=== PATIENT | female | born 1995 | race African-American/Black ===

== ENCOUNTER 2016-10-01 03:58 | Emergency (ER) | payer MEDICAID, OTHER ==
[~2016-10-01] VITALS: Ht 170.2 cm; Wt 77.0 kg
[~2016-10-01 03:58] MED LIST: MACR100C PO
[2016-10-01 04:05] VITALS: BP 114/53; PULSE 80; RESP 14; TEMP 98.2; O2SAT 97
--- NOTE | 2016-10-01 04:18 | PD ---
HPI Chief Complaint: Syncope/Near-Syncope Time Seen by Provider: 04:11 Travel History International Travel<30 days: No Contact w/Intl Traveler<30days: No Traveled to known affect area: No History of Present Illness HPI To 21 year-old woman who had 2 episodes of feeling faint and lightheaded while at work. Should some nausea with the infiltrated throat. No history of previous similar problems. She feels well now. She had been standing when this happened but it was not otherwise particularly hot. No recent dehydration. No recent illnesses or injuries. She states she does get heavy menstrual cycles, her last initial period was September 06. She does not believe she is . No other complaints. History Past Medical History Medical History: Denies Significant Hx LMP: 09/06/16 Menopausal: No : 2 Para: 2 Social History Alcohol Use: No Tobacco Use: No Allergies-Medications (Allergen,Severity, Reaction): Coded Allergies: No Known Allergies (Verified , 10/01/16) Reported Meds & Prescriptions Reported Meds & Active Scripts Active Review of Systems Except as stated in HPI: all other systems reviewed are Neg Physical Exam Narrative GENERAL: Well-appearing 21 year-old woman, no acute distress. SKIN: Warm and dry. HEAD: Atraumatic. Normocephalic. EYES: Pupils equal and round. No scleral icterus. No injection or drainage. ENT: No nasal bleeding or discharge. Mucous membranes pink and moist. NECK: Trachea midline. No JVD. CARDIOVASCULAR: Regular rate and rhythm. No murmur appreciated. RESPIRATORY: No accessory muscle use. Clear to auscultation. Breath sounds equal bilaterally. GASTROINTESTINAL: Abdomen soft, non-tender, nondistended. Hepatic and splenic margins not palpable. MUSCULOSKELETAL: No obvious deformities. No clubbing. No cyanosis. No edema. NEUROLOGICAL: Awake and alert. No obvious cranial nerve deficits. Motor grossly within normal limits. Normal speech. PSYCHIATRIC: Appropriate mood and affect; insight and judgment normal. Data Data Last Documented VS Vital Signs Date Time Temp Pulse Resp B/P Pulse Ox O2 Delivery O2 Flow Rate FiO2 10/01/16 04:05 98.2 80 14 114/53 97 Room Air Orders Electrocardiogram (10/01/16 ) Complete Blood Count With Diff (10/01/16 04:16) Ed Urine Pregnancytest Poc (10/01/16 04:16) Urinalysis - C+S If Indicated (10/01/16 04:32) Urine Culture (10/01/16 04:35) Labs Laboratory Tests Test 10/01/16 04:35 White Blood Count 7.8 TH/MM3 Red Blood Count 4.42 MIL/MM3 Hemoglobin 10.3 GM/DL Hematocrit 32.3 % Mean Corpuscular Volume 73.3 FL Mean Corpuscular Hemoglobin 23.4 PG Mean Corpuscular Hemoglobin 32.0 % Concent Red Cell Distribution Width 17.3 % Platelet Count 343 TH/MM3 Mean Platelet Volume 7.9 FL Neutrophils (%) (Auto) 61.7 % Lymphocytes (%) (Auto) 27.0 % Monocytes (%) (Auto) 6.9 % Eosinophils (%) (Auto) 3.7 % Basophils (%) (Auto) 0.7 % Neutrophils # (Auto) 4.8 TH/MM3 Lymphocytes # (Auto) 2.1 TH/MM3 Monocytes # (Auto) 0.5 TH/MM3 Eosinophils # (Auto) 0.3 TH/MM3 Basophils # (Auto) 0.1 TH/MM3 CBC Comment AUTO DIFF Urine Color YELLOW Urine Turbidity HAZY Urine pH 5.5 Urine Specific [place] 1.030 Urine Protein 30 mg/dL Urine Glucose (UA) NEG mg/dL Urine Ketones TRACE mg/dL Urine Occult Blood NEG Urine Nitrite NEG Urine Bilirubin NEG Urine Urobilinogen 2.0 MG/DL Urine Leukocyte Esterase LARGE Urine RBC 11 /hpf Urine WBC 32 /hpf Urine Squamous Epithelial 10 /hpf Cells Urine Transitional Epithelial <1 /hpf Cells Urine Renal Epithelial Cells 8 /hpf Urine Bacteria RARE /hpf Urine Hyaline Casts 2 /lpf Urine Mucus MANY /lpf Microscopic Urinalysis Comment CULTURE INDICATED MDM Medical Decision Making Medical Screen Exam Complete: Yes Emergency Medical Condition: Yes Interpretation(s) Labs CBC mild anemia UA with pyuria EKG is unremarkable. Differential Diagnosis Dehydration, anemia, vasovagal episode, other Narrative Course Medical decision making Well 21 year-old woman presents emergent department with 2 episodes of feeling faint and lightheaded. She looks fine now. She states she does get heavy menstrual cycles. We'll check CBC. We'll check EKG, and we'll check a point-of -care hCG. Likely recommend drink plenty of fluids, reassess if not improved. Diagnosis Primary Impression: Near syncope Additional Impression: Acute cystitis Qualified Code: N30.00 - Acute cystitis without hematuria Additional Instructions: Drink plenty of fluids stay well-hydrated. Follow-up with your primary doctor for not completely well in the next 2-3 days. Return to the emergency room for any new or worsening symptoms. Med/Other Pt SpecificInfo: Prescription(s) given Scripts Cephalexin (Keflex)500 Mg Esb592 Mg PO Q8H 7 Days Ref 0 Prov:Anshu Eldridge MD 10/01/16 Disposition: 01 DISCHARGE HOME Condition: Stable Anshu Eldridge MD Oct 01, 2016 04:18
[2016-10-01 04:44] LABS: AUTOMATED NEUTROPHIL # 4.8 TH/MM3 (1.8-7.7); BASOPHIL # 0.1 TH/MM3 (0-0.2); BASOPHIL % 0.7 % (0.0-2.0); EOSINOPHIL # 0.3 TH/MM3 (0-0.4); EOSINOPHIL % 3.7 % (0.0-4.0); HEMATOCRIT 32.3 % (35.0-46.0); LYMPHOCYTE # 2.1 TH/MM3 (1.0-4.8); MEAN CELL VOLUME 73.3 FL (80.0-100.0); MEAN CORPUSCULAR HEMOGLOBIN 23.4 PG (27.0-34.0); MONO % 6.9 % (0.0-8.0); NEUT % 61.7 % (16.0-70.0); PLATELET COUNT 343 TH/MM3 (150-450); RED BLOOD COUNT 4.42 MIL/MM3 (4.00-5.30); RED CELL DISTRIBUTION WIDTH 17.3 % (11.6-17.2); WHITE BLOOD COUNT 7.8 TH/MM3 (4.0-11.0)
[2016-10-01 04:50] LABS: BACTERIA, URINE RARE /hpf; BLOOD, URINE NEG (NEG); COMMENT (UR) CULTURE INDICATED; CULTURE IF INDICATED CULTURE INDICATED; GLUCOSE,URINE NEG (NEG); HYALINE CAST, URINE 2 /lpf (RARE); KETONE, URINE TRACE mg/dL (NEG); MUCUS URINE MANY /lpf (OCC); NITRITE,URINE NEG (NEG); PH, URINE 5.5 (5.0-8.5); RENAL EPITHELIAL CELLS 8 /hpf; SQUAMOUS EPITHELIAL CELL URINE 10 /hpf (0-5); TRANSITIONAL EPI CELLS, URINE <1 /hpf; URINE COLOR YELLOW (YELLW/STRAW)
[2016-10-01 04:51] LABS: HEMO FLAGS AUTO DIFF
[2016-10-01] MEDS ORDERED: CEPH-460 PO (04:59)
[2016-10-01 05:24] LABS: ACANTHOCYTES OCC (NORMAL); KERATOCYTES OCC (NORMAL); OVALOCYTES 1+ (NORMAL); SCAN/DIFF AUTO DIFF CONFIRMED
--- NOTE | 2016-10-01 18:17 | EKG ---
Date Performed: 10/01/2016 Time Performed: 04:28:49 PTAGE: 21 years EKG: Sinus rhythm WITH SINUS ARRHYTHMIA When compared to previous tracing, sinus rate has increased. NORMAL ECG PREVIOUS TRACING : 05/17/2016 05.28 DOCTOR: Fuentes Cobian Interpretating Date/Time 10/01/2016 18:15:29
[2017-02-15] MEDS ORDERED: FERR200T PO (13:17)
[2017-02-16] MEDS ORDERED: PREN1TAB50 PO (15:23)
== END 2016-10-01 05:24 | disposition home or self-care (01) ==
LOC: NEPE 03:58
DX: R55 Syncope and collapse (principal); N30.00 Acute cystitis without hematuria; I49.8 Other specified cardiac arrhythmias
CPT/HCPCS: 81001; 84703; 85025; 87086; 93005

== ENCOUNTER 2016-12-03 12:56 | Emergency (ER) | payer MEDICAID, OTHER ==
[~2016-12-03] VITALS: Ht 170.2 cm; Wt 75.0 kg
[~2016-12-03 12:56] MED LIST changes: +CEPH-460 PO; -MACR100C PO
[2016-12-03 12:58] VITALS: BP 128/68; PULSE 86; RESP 16; TEMP 98.2; O2SAT 98
--- NOTE | 2016-12-03 13:05 | PD ---
Physical Exam Date Seen by Provider: Dec 03, 2016 Time Seen by Provider: 13:02 Narrative Patient seen in triage with 1 week Hx lower back pain, Dysuria and White Vaginal Discharge. Patient reports Positive test today. No vomiting , Nausea, or Flank pain. LMP was beginning of Oct. Vital Signs Stable. Patient waiting on Bed Placement. Data Data Last Documented VS Vital Signs Date Time Temp Pulse Resp B/P Pulse Ox O2 Delivery O2 Flow Rate FiO2 12/03/16 12:58 98.2 86 16 128/68 98 Room Air [facility] Medical Record Reviewed: Yes Supervised Visit with SAURAV: Yes Condition: Stable Surjit Wang Dec 03, 2016 13:05
[2016-12-03 14:58] LABS: AUTOMATED NEUTROPHIL # 1.9 TH/MM3 (1.8-7.7); BASOPHIL # 0.1 TH/MM3 (0-0.2); EOSINOPHIL # 0.1 TH/MM3 (0-0.4); EOSINOPHIL % 2.6 % (0.0-4.0); HEMATOCRIT 32.2 % (35.0-46.0); LYMPH % 55.5 % (9.0-44.0); LYMPHOCYTE # 3.1 TH/MM3 (1.0-4.8); MEAN CELL VOLUME 71.9 FL (80.0-100.0); MEAN CORPUSCULAR HEMOGLOBIN 22.5 PG (27.0-34.0); MEAN CORPUSCULAR HGB CONC 31.4 % (32.0-36.0); MONO % 6.6 % (0.0-8.0); NEUT % 34.3 % (16.0-70.0); PLATELET COUNT 344 TH/MM3 (150-450); RED BLOOD COUNT 4.48 MIL/MM3 (4.00-5.30); RED CELL DISTRIBUTION WIDTH 19.6 % (11.6-17.2); WHITE BLOOD COUNT 5.5 TH/MM3 (4.0-11.0)
[2016-12-03 15:05] LABS: HEMO FLAGS AUTO DIFF
[2016-12-03 15:08] LABS: BLOOD, URINE NEG (NEG); COMMENT (UR) CULTURE INDICATED; CULTURE IF INDICATED CULTURE INDICATED; GLUCOSE,URINE NEG (NEG); KETONE, URINE NEG (NEG); MUCUS URINE FEW /lpf (OCC); NITRITE,URINE NEG (NEG); PH, URINE 8.5 (5.0-8.5); SQUAMOUS EPITHELIAL CELL URINE 8 /hpf (0-5); URINE COLOR YELLOW (YELLW/STRAW)
--- NOTE | 2016-12-03 15:09 | PD ---
HPI Chief Complaint: J[employer]isan Problem/Complaint Time Seen by Provider: 14:35 Travel History International Travel<30 days: No Contact w/Intl Traveler<30days: No Traveled to known affect area: No History of Present Illness HPI 21-year-old female came to the emergency room for mid back pain that has been going on for past 3-4 days. Also she found out this morning that she was . Patient does not remember her last menstrual period. She has irregular periods in general. No history of vomiting or diarrhea. No history of fever or chills. Vital signs were stable in the emergency room. No history of cramping or spotting. Patient is A0. PFSH Past Medical History Narrative Medical List of her past medical history as reviewed from the nursing note. Diminished Hearing: No Immunizations Current: Yes ?: Unknown LMP: 10/11/16 Menopausal: No : 3 Para: 2 Ovarian Cysts: Yes (removed) Past Surgical History Gynecologic Surgery: Yes (DENDRITE ON OVARY REMOVED) Other Surgery: No Social History Alcohol Use: No Tobacco Use: No Substance Use: No Allergies-Medications (Allergen,Severity, Reaction): Coded Allergies: No Known Allergies (Verified , 10/01/16) Comments No known drug allergies. Reported Meds & Prescriptions Reported Meds & Active Scripts Active Vitamins Plus Lo 27-1 mg ( Vit W/ Ferrous Fumara) 1 Tab Tab 1 Tab PO AC LUNCH 60 Days Macrobid (Nitrofurantoin Monoh/Nitrofur Macro) 100 Mg Cap 100 Mg PO BID 10 Days Narrative Medication List of home medications reviewed from the nursing note. Review of Systems Except as stated in HPI: all other systems reviewed are Neg Physical Exam Narrative GENERAL: Awake, alert, no obvious distress SKIN: Focused skin assessment warm/dry. HEAD: Atraumatic. Normocephalic. EYES: Pupils equal and round. No scleral icterus. No injection or drainage. ENT: No nasal bleeding or discharge. Mucous membranes pink and moist. NECK: Trachea midline. No JVD. CARDIOVASCULAR: Regular rate and rhythm. No murmur appreciated. RESPIRATORY: No accessory muscle use. Clear to auscultation. Breath sounds equal bilaterally. GASTROINTESTINAL: Abdomen soft, non-tender, nondistended. Hepatic and splenic margins not palpable. No CVA tenderness MUSCULOSKELETAL: No obvious deformities. No clubbing. No cyanosis. No edema. No point tenderness on the back NEUROLOGICAL: Awake and alert. No obvious cranial nerve deficits. Motor grossly within normal limits. Normal speech. PSYCHIATRIC: Appropriate mood and affect; insight and judgment normal. Data Data Last Documented VS Vital Signs Date Time Temp Pulse Resp B/P Pulse Ox O2 Delivery O2 Flow Rate FiO2 12/03/16 12:58 98.2 86 16 128/68 98 Room Air Orders Beta Hcg (Quant/Titer) (12/03/16 14:38) Complete Blood Count With Diff (12/03/16 14:38) Basic Metabolic Panel (Bmp) (12/03/16 14:38) Urinalysis - C+S If Indicated (12/03/16 14:38) Urine Culture (12/03/16 14:50) Labs Laboratory Tests Test 12/03/16 14:50 White Blood Count 5.5 TH/MM3 Red Blood Count 4.48 MIL/MM3 Hemoglobin 10.1 GM/DL Hematocrit 32.2 % Mean Corpuscular Volume 71.9 FL Mean Corpuscular Hemoglobin 22.5 PG Mean Corpuscular Hemoglobin 31.4 % Concent Red Cell Distribution Width 19.6 % Platelet Count 344 TH/MM3 Mean Platelet Volume 7.8 FL Neutrophils (%) (Auto) 34.3 % Lymphocytes (%) (Auto) 55.5 % Monocytes (%) (Auto) 6.6 % Eosinophils (%) (Auto) 2.6 % Basophils (%) (Auto) 1.0 % Neutrophils # (Auto) 1.9 TH/MM3 Lymphocytes # (Auto) 3.1 TH/MM3 Monocytes # (Auto) 0.4 TH/MM3 Eosinophils # (Auto) 0.1 TH/MM3 Basophils # (Auto) 0.1 TH/MM3 CBC Comment AUTO DIFF Differential Comment AUTO DIFF CONFIRMED Platelet Estimate NORMAL Platelet Morphology Comment NORMAL Ovalocytes 1+ Keratocytes 1+ Urine Color YELLOW Urine Turbidity CLOUDY Urine pH 8.5 Urine Specific [place] 1.026 Urine Protein 30 mg/dL Urine Glucose (UA) NEG mg/dL Urine Ketones NEG mg/dL Urine Occult Blood NEG Urine Nitrite NEG Urine Bilirubin NEG Urine Urobilinogen 2.0 MG/DL Urine Leukocyte Esterase MOD Urine RBC 2 /hpf Urine WBC 15 /hpf Urine Squamous Epithelial 8 /hpf Cells Urine Amorphous Sediment RARE Urine Mucus FEW /lpf Microscopic Urinalysis Comment CULTURE INDICATED Sodium Level 141 MEQ/L Potassium Level 3.6 MEQ/L Chloride Level 109 MEQ/L Carbon Dioxide Level 24.9 MEQ/L Anion Gap 7 MEQ/L Blood Urea Nitrogen 9 MG/DL Creatinine 0.61 MG/DL Estimat Glomerular Filtration 151 ML/MIN Rate Random Glucose 80 MG/DL Calcium Level 8.7 MG/DL Human Chorionic Gonadotropin, 2830 MIU/ML Quant MDM Medical Decision Making Medical Screen Exam Complete: Yes Emergency Medical Condition: Yes Medical Record Reviewed: Yes Differential Diagnosis UTI, Narrative Course 3:48 PM patient has a UTI. Beta hCG is elevated as expected in . She is slightly anemic. I'll discharge her home on Macrobid and vitamin pills. I've explained to her that she needs to find an OB for herself. Procedures EKG Prior to Arrival: No Diagnosis Primary Impression: UTI (urinary tract infection) Qualified Code: N39.0 - Urinary tract infection without hematuria, site unspecified Additional Impressions: First trimester Iron deficiency anemia Qualified Code: D50.9 - Iron deficiency anemia, unspecified iron deficiency anemia type Referrals: Primary Care Physician 3 days Additional Instructions: Please return to the ER if the condition worsens or any other new concerns. Take the medications as per the prescription direction. Drink plenty of fluids. Find an OB for yourselves for this . Med/Other Pt SpecificInfo: Prescription(s) given Scripts Vit W/ Ferrous Fumara ( Vitamins Plus Lo 27-1 mg)1 Tab Tab1 Tab PO AC LUNCH 60 Days Prov:Israel Park MD 12/03/16 Nitrofurantoin Monohydrate Macrocrystals (Macrobid)100 Mg Yyx060 Mg PO BID 10 Days Ref 0 Prov:Israel Park MD 12/03/16 Disposition: DISCHARGE HOME Condition: Stable Israel Park MD Dec 03, 2016 15:09
[2016-12-03 15:13] LABS: BICARBONATE 24.9 MEQ/L (21.0-32.0); POTASSIUM 3.6 MEQ/L (3.5-5.1)
[2016-12-03 15:38] LABS: KERATOCYTES 1+ (NORMAL); OVALOCYTES 1+ (NORMAL); PLATELET ESTIMATE SMEAR NORMAL (NORMAL); PLATELET MORPHOLOGY NORMAL (NORMAL); SCAN/DIFF AUTO DIFF CONFIRMED
[2016-12-03] MEDS ORDERED: PREN1TAB50 PO (15:51)
[2016-12-03] MEDS ORDERED: MACR100C2 PO (15:51)
[2017-02-15] MEDS ORDERED: FERR200T PO (13:17)
[2017-02-16] MEDS ORDERED: PREN1TAB50 PO (15:23)
== END 2016-12-03 16:30 | disposition home or self-care (01) ==
LOC: NEPA 12:56
DX: O23.41 Unspecified infection of urinary tract in pregnancy, first trimester (principal); O99.011 Anemia complicating pregnancy, first trimester; D50.9 Iron deficiency anemia, unspecified; Z3A.00 Weeks of gestation of pregnancy not specified
CPT/HCPCS: 80048; 81001; 84702; 85025; 87086; 99283

== ENCOUNTER 2016-12-25 23:07 | Emergency (ER) | payer MEDICAID ==
[~2016-12-25] VITALS: Ht 170.2 cm; Wt 77.0 kg
[~2016-12-25 23:07] MED LIST changes: -CEPH-460 PO; +MACR100C2 PO; +PREN1TAB50 PO
[2016-12-25 23:10] VITALS: BP 108/65; PULSE 72; RESP 14; TEMP 98.7; O2SAT 100
[2017-02-15] MEDS ORDERED: FERR200T PO (13:17)
[2017-02-16] MEDS ORDERED: PREN1TAB50 PO (15:23)
== END 2016-12-26 04:00 | disposition left against medical advice (07) ==
LOC: NED 23:07
DX: Z03.89 Encounter for observation for other suspected diseases and conditions ruled out (principal)
CPT/HCPCS: 99281

== ENCOUNTER 2016-12-28 15:34 | Emergency (ER) | payer MEDICAID, OTHER ==
[~2016-12-28] VITALS: Ht 170.2 cm; Wt 69.0 kg
[2016-12-28 15:37] VITALS: BP 129/59; PULSE 53; RESP 16; TEMP 97.3; O2SAT 100
--- NOTE | 2016-12-28 15:57 | PD ---
Physical Exam Time Seen by Provider: 15:55 Narrative 21yo F, unknown gestation of , c/o abd pain and cramping to R side x1 week. Found out she was December 03. Denies vag bleeding. Reports vomiting. Denies fever. Patient stable. Patient seen in triage. Awaiting bed placement. Data Data Last Documented VS Vital Signs Date Time Temp Pulse Resp B/P Pulse Ox O2 Delivery O2 Flow Rate FiO2 12/28/16 15:37 97.3 53 16 129/59 100 MDM Supervised Visit with SAURAV: Odalis Harmon Dec 28, 2016 15:57
[2016-12-28] MEDS ORDERED: SODIUM CHLOR 0.9% 1000 ML INJ 1,000 ML IV ONE (18:07)
[2016-12-28] MEDS ORDERED: SODIUM CHLORIDE 0.9% FLUSH 10 ML FLUSH IVF PRN (18:15)
--- NOTE | 2016-12-28 18:15 | PD ---
HPI Chief Complaint: Related Problem Time Seen by Provider: 18:13 Travel History International Travel<30 days: No Contact w/Intl Traveler<30days: No Traveled to known affect area: No History of Present Illness HPI Patient is a 21-year-old female presenting to emergency for evaluation of cramping in her abdomen. She also reports having a fainting spell 2 days ago at work. Patient reports she is but does not know how far long as her periods are irregular. She reports the cramping as a 7 out of 10 to denies any fevers, chills, vaginal bleeding, vaginal discharge or dysuria. Patient is A0 she has not had any care to this point. PFSH Past Medical History Diminished Hearing: No Immunizations Current: Yes ?: LMP: UTD Menopausal: No : 3 Para: 2 Ovarian Cysts: Yes (removed) Past Surgical History Gynecologic Surgery: Yes (DENDRITE ON OVARY REMOVED) Other Surgery: No Social History Alcohol Use: No Tobacco Use: No Substance Use: No Allergies-Medications (Allergen,Severity, Reaction): Coded Allergies: No Known Allergies (Verified , 12/28/16) Reported Meds & Prescriptions Reported Meds & Active Scripts Active Vitamins Plus Lo 27-1 mg ( Vit W/ Ferrous Fumara) 1 Tab Tab 1 Tab PO AC LUNCH 60 Days Review of Systems Except as stated in HPI: all other systems reviewed are Neg Genitourinary: Positive: Pelvic Pain, No: Dysuria, Discharge, Vaginal Bleeding Musculoskeletal: Positive: Cramping Neurologic: Positive: Syncope Physical Exam Narrative GENERAL: Well-developed, well-nourished, alert female. Resting comfortably in no acute distress.] SKIN: Focused skin assessment warm/dry. HEAD: Atraumatic. Normocephalic. EYES: Pupils equal and round. No scleral icterus. No injection or drainage. ENT: No nasal bleeding or discharge. Mucous membranes pink and moist. NECK: Trachea midline. No JVD. CARDIOVASCULAR: Regular rate and rhythm. No murmur appreciated. RESPIRATORY: No accessory muscle use. Clear to auscultation. Breath sounds equal bilaterally. GASTROINTESTINAL: Abdomen soft, mildly tender to palpation in right lower quadrant. No rebound, no guarding, nondistended. Hepatic and splenic margins not palpable. MUSCULOSKELETAL: No obvious deformities. No clubbing. No cyanosis. No edema. NEUROLOGICAL: Awake and alert. No obvious cranial nerve deficits. Motor grossly within normal limits. Normal speech. PSYCHIATRIC: Appropriate mood and affect; insight and judgment normal. Data Data Last Documented VS Vital Signs Date Time Temp Pulse Resp B/P Pulse Ox O2 Delivery O2 Flow Rate FiO2 12/28/16 20:18 86 16 138/80 99 Room Air 12/28/16 15:37 97.3 Orders Electrocardiogram (12/28/16 18:07) Complete Blood Count With Diff (12/28/16 18:07) Comprehensive Metabolic Panel (12/28/16 18:07) Magnesium (Mg) (12/28/16 18:07) Urinalysis - C+S If Indicated (12/28/16 18:07) Iv Access Insert/Monitor (12/28/16 18:07) Sodium Chloride 0.9% Flush (Ns Flush) (12/28/16 18:15) Sodium Chlor 0.9% 1000 Ml Inj (Ns 1000 M (12/28/16 18:07) Beta Hcg (Quant/Titer) (12/28/16 18:07) Labs Laboratory Tests Test 12/28/16 12/28/16 18:00 20:20 White Blood Count 7.2 TH/MM3 Red Blood Count 4.08 MIL/MM3 Hemoglobin 9.7 GM/DL Hematocrit 29.8 % Mean Corpuscular Volume 73.0 FL Mean Corpuscular Hemoglobin 23.8 PG Mean Corpuscular Hemoglobin 32.6 % Concent Red Cell Distribution Width 21.0 % Platelet Count 284 TH/MM3 Mean Platelet Volume 7.9 FL Neutrophils (%) (Auto) 45.8 % Lymphocytes (%) (Auto) 46.1 % Monocytes (%) (Auto) 6.0 % Eosinophils (%) (Auto) 1.7 % Basophils (%) (Auto) 0.4 % Neutrophils # (Auto) 3.3 TH/MM3 Lymphocytes # (Auto) 3.3 TH/MM3 Monocytes # (Auto) 0.4 TH/MM3 Eosinophils # (Auto) 0.1 TH/MM3 Basophils # (Auto) 0.0 TH/MM3 CBC Comment AUTO DIFF Differential Comment AUTO DIFF CONFIRMED Platelet Estimate NORMAL Platelet Morphology Comment NORMAL Tear Drop Cells 2+ Rajni Cells 2+ Acanthocytes 1+ Sodium Level 135 MEQ/L Potassium Level 3.8 MEQ/L Chloride Level 104 MEQ/L Carbon Dioxide Level 22.5 MEQ/L Anion Gap 9 MEQ/L Blood Urea Nitrogen 6 MG/DL Creatinine 0.57 MG/DL Estimat Glomerular Filtration 164 ML/MIN Rate Random Glucose 71 MG/DL Calcium Level 8.6 MG/DL Magnesium Level 2.0 MG/DL Total Bilirubin 0.3 MG/DL Aspartate Amino Transf 10 U/L (AST/SGOT) Alanine Aminotransferase 23 U/L (ALT/SGPT) Alkaline Phosphatase 46 U/L Total Protein 6.9 GM/DL Albumin 3.7 GM/DL Human Chorionic Gonadotropin, [id number] MIU/ML Quant Urine Color YELLOW Urine Turbidity CLEAR Urine pH 6.0 Urine Specific [place] 1.015 Urine Protein NEG mg/dL Urine Glucose (UA) NEG mg/dL Urine Ketones 80 mg/dL Urine Occult Blood NEG Urine Nitrite NEG Urine Bilirubin NEG Urine Urobilinogen LESS THAN 2.0 MG/DL Urine Leukocyte Esterase SMALL Urine RBC LESS THAN 1 /hpf Urine WBC 3 /hpf Urine Mucus FEW /lpf Microscopic Urinalysis Comment CULT NOT INDICATED MDM Medical Decision Making Medical Screen Exam Complete: Yes Emergency Medical Condition: Yes Interpretation(s) Vital Signs Date Time Temp Pulse Resp B/P Pulse Ox O2 Delivery O2 Flow Rate FiO2 12/28/16 15:37 97.3 53 16 129/59 100 Differential Diagnosis Urinary tract infection versus threatened versus round ligament pain versus ovarian cyst versus other Narrative Course Patient is a 21-year-old female presenting to emergency department for evaluation of pelvic cramping as well as a syncopal episode 2 days ago. Labs, EKG ordered and pending. Ultrasound shows intrauterine with heart tones detected on exam. CBC shows a mild anemia at 9.7 and 29.8 HCG is 149,419 Chemistries unremarkable EKG shows sinus bradycardia with a rate of 46 She was observed sleeping, resting comfortably. Urinalysis pending, care of patient is transferred to my attending physician, she will determine the patient's disposition. Stephani Mustafa Dec 28, 2016 18:15
[2016-12-28 18:58] LABS: AUTOMATED NEUTROPHIL # 3.3 TH/MM3 (1.8-7.7); BASOPHIL % 0.4 % (0.0-2.0); EOSINOPHIL # 0.1 TH/MM3 (0-0.4); EOSINOPHIL % 1.7 % (0.0-4.0); HEMATOCRIT 29.8 % (35.0-46.0); LYMPH % 46.1 % (9.0-44.0); LYMPHOCYTE # 3.3 TH/MM3 (1.0-4.8); MEAN CORPUSCULAR HEMOGLOBIN 23.8 PG (27.0-34.0); MEAN CORPUSCULAR HGB CONC 32.6 % (32.0-36.0); NEUT % 45.8 % (16.0-70.0); PLATELET COUNT 284 TH/MM3 (150-450); RED BLOOD COUNT 4.08 MIL/MM3 (4.00-5.30); WHITE BLOOD COUNT 7.2 TH/MM3 (4.0-11.0)
[2016-12-28 19:01] LABS: HEMO FLAGS AUTO DIFF
[2016-12-28 19:15] LABS: ANION GAP 9 MEQ/L (5-15); BICARBONATE 22.5 MEQ/L (21.0-32.0); BLOOD UREA NITROGEN 6 MG/DL (7-18); CHLORIDE 104 MEQ/L (98-107); GLOMERULAR FILTRATION RATE 164 ML/MIN (>89); POTASSIUM 3.8 MEQ/L (3.5-5.1); SODIUM (NA) 135 MEQ/L (136-145)
[2016-12-28 19:35] LABS: ALKALINE PHOSPHATASE 46 U/L (45-117); ALT (GPT) 23 U/L (9-42); AST (GOT) 10 U/L (16-38); BETA HCG QUANT 149419 MIU/ML (0-5); TOTAL BILIRUBIN ADULT 0.3 MG/DL (0.2-1.0)
[2016-12-28 19:43] LABS: ACANTHOCYTES 1+ (NORMAL); BURR CELLS 2+ (NORMAL); PLATELET ESTIMATE SMEAR NORMAL (NORMAL); PLATELET MORPHOLOGY NORMAL (NORMAL); SCAN/DIFF AUTO DIFF CONFIRMED; TEARDROP RBCS 2+ (NORMAL)
[2016-12-28 20:18] VITALS: BP 138/80; PULSE 86; RESP 16; O2SAT 99
[2016-12-28 21:11] LABS: BLOOD, URINE NEG (NEG); COMMENT (UR) CULT NOT INDICATED; CULTURE IF INDICATED CULT NOT INDICATED; GLUCOSE,URINE NEG (NEG); KETONE, URINE 80 mg/dL (NEG); MUCUS URINE FEW /lpf (OCC); NITRITE,URINE NEG (NEG); URINE COLOR YELLOW (YELLW/STRAW)
--- NOTE | 2016-12-28 21:52 | PD ---
Physical Exam Date Seen by Provider: Dec 28, 2016 Data Data Last Documented VS Vital Signs Date Time Temp Pulse Resp B/P Pulse Ox O2 Delivery O2 Flow Rate FiO2 12/28/16 20:18 86 16 138/80 99 Room Air 12/28/16 15:37 97.3 Orders Electrocardiogram (12/28/16 18:07) Complete Blood Count With Diff (12/28/16 18:07) Comprehensive Metabolic Panel (12/28/16 18:07) Magnesium (Mg) (12/28/16 18:07) Urinalysis - C+S If Indicated (12/28/16 18:07) Iv Access Insert/Monitor (12/28/16 18:07) Sodium Chloride 0.9% Flush (Ns Flush) (12/28/16 18:15) Sodium Chlor 0.9% 1000 Ml Inj (Ns 1000 M (12/28/16 18:07) Beta Hcg (Quant/Titer) (12/28/16 18:07) Labs Laboratory Tests Test 12/28/16 12/28/16 18:00 20:20 White Blood Count 7.2 TH/MM3 Red Blood Count 4.08 MIL/MM3 Hemoglobin 9.7 GM/DL Hematocrit 29.8 % Mean Corpuscular Volume 73.0 FL Mean Corpuscular Hemoglobin 23.8 PG Mean Corpuscular Hemoglobin 32.6 % Concent Red Cell Distribution Width 21.0 % Platelet Count 284 TH/MM3 Mean Platelet Volume 7.9 FL Neutrophils (%) (Auto) 45.8 % Lymphocytes (%) (Auto) 46.1 % Monocytes (%) (Auto) 6.0 % Eosinophils (%) (Auto) 1.7 % Basophils (%) (Auto) 0.4 % Neutrophils # (Auto) 3.3 TH/MM3 Lymphocytes # (Auto) 3.3 TH/MM3 Monocytes # (Auto) 0.4 TH/MM3 Eosinophils # (Auto) 0.1 TH/MM3 Basophils # (Auto) 0.0 TH/MM3 CBC Comment AUTO DIFF Differential Comment AUTO DIFF CONFIRMED Platelet Estimate NORMAL Platelet Morphology Comment NORMAL Tear Drop Cells 2+ Rajni Cells 2+ Acanthocytes 1+ Sodium Level 135 MEQ/L Potassium Level 3.8 MEQ/L Chloride Level 104 MEQ/L Carbon Dioxide Level 22.5 MEQ/L Anion Gap 9 MEQ/L Blood Urea Nitrogen 6 MG/DL Creatinine 0.57 MG/DL Estimat Glomerular Filtration 164 ML/MIN Rate Random Glucose 71 MG/DL Calcium Level 8.6 MG/DL Magnesium Level 2.0 MG/DL Total Bilirubin 0.3 MG/DL Aspartate Amino Transf 10 U/L (AST/SGOT) Alanine Aminotransferase 23 U/L (ALT/SGPT) Alkaline Phosphatase 46 U/L Total Protein 6.9 GM/DL Albumin 3.7 GM/DL Human Chorionic Gonadotropin, [id number] MIU/ML Quant Urine Color YELLOW Urine Turbidity CLEAR Urine pH 6.0 Urine Specific [place] 1.015 Urine Protein NEG mg/dL Urine Glucose (UA) NEG mg/dL Urine Ketones 80 mg/dL Urine Occult Blood NEG Urine Nitrite NEG Urine Bilirubin NEG Urine Urobilinogen LESS THAN 2.0 MG/DL Urine Leukocyte Esterase SMALL Urine RBC LESS THAN 1 /hpf Urine WBC 3 /hpf Urine Mucus FEW /lpf Microscopic Urinalysis Comment CULT NOT INDICATED MDM Medical Record Reviewed: Yes Supervised Visit with SAURAV: Yes Interpretation(s) Vital Signs Date Time Temp Pulse Resp B/P Pulse Ox O2 Delivery O2 Flow Rate FiO2 12/28/16 20:18 86 16 138/80 99 Room Air 12/28/16 15:37 97.3 53 16 129/59 100 Laboratory Tests Test 12/28/16 12/28/16 18:00 20:20 White Blood Count 7.2 TH/MM3 (4.0-11.0) Red Blood Count 4.08 MIL/MM3 (4.00-5.30) Hemoglobin 9.7 GM/DL (11.6-15.3) Hematocrit 29.8 % (35.0-46.0) Mean Corpuscular Volume 73.0 FL (80.0-100.0) Mean Corpuscular Hemoglobin 23.8 PG (27.0-34.0) Mean Corpuscular Hemoglobin 32.6 % Concent (32.0-36.0) Red Cell Distribution Width 21.0 % (11.6-17.2) Platelet Count 284 TH/MM3 (150-450) Mean Platelet Volume 7.9 FL (7.0-11.0) Neutrophils (%) (Auto) 45.8 % (16.0-70.0) Lymphocytes (%) (Auto) 46.1 % (9.0-44.0) Monocytes (%) (Auto) 6.0 % (0.0-8.0) Eosinophils (%) (Auto) 1.7 % (0.0-4.0) Basophils (%) (Auto) 0.4 % (0.0-2.0) Neutrophils # (Auto) 3.3 TH/MM3 (1.8-7.7) Lymphocytes # (Auto) 3.3 TH/MM3 (1.0-4.8) Monocytes # (Auto) 0.4 TH/MM3 (0-0.9) Eosinophils # (Auto) 0.1 TH/MM3 (0-0.4) Basophils # (Auto) 0.0 TH/MM3 (0-0.2) CBC Comment AUTO DIFF Differential Comment AUTO DIFF CONFIRMED Platelet Estimate NORMAL (NORMAL) Platelet Morphology Comment NORMAL (NORMAL) Tear Drop Cells 2+ (NORMAL) [place] Cells 2+ (NORMAL) Acanthocytes 1+ (NORMAL) Sodium Level 135 MEQ/L (136-145) Potassium Level 3.8 MEQ/L (3.5-5.1) Chloride Level 104 MEQ/L (98-107) Carbon Dioxide Level 22.5 MEQ/L (21.0-32.0) Anion Gap 9 MEQ/L (5-15) Blood Urea Nitrogen 6 MG/DL (7-18) Creatinine 0.57 MG/DL (0.50-1.00) Estimat Glomerular Filtration 164 ML/MIN Rate (>89) Random Glucose 71 MG/DL (74-106) Calcium Level 8.6 MG/DL (8.5-10.1) Magnesium Level 2.0 MG/DL (1.5-2.5) Total Bilirubin 0.3 MG/DL (0.2-1.0) Aspartate Amino Transf 10 U/L (16-38) (AST/SGOT) Alanine Aminotransferase 23 U/L (9-42) (ALT/SGPT) Alkaline Phosphatase 46 U/L (45-117) Total Protein 6.9 GM/DL (6.4-8.2) Albumin 3.7 GM/DL (3.4-5.0) Human Chorionic Gonadotropin, [id number] MIU/ML Quant (0-5) Urine Color YELLOW (YELLW/STRAW) Urine Turbidity CLEAR (CLEAR) Urine pH 6.0 (5.0-8.5) Urine Specific [place] 1.015 (1.002-1.035) Urine Protein NEG mg/dL (NEG-TRACE) Urine Glucose (UA) NEG mg/dL (NEG) Urine Ketones 80 mg/dL (NEG) Urine Occult Blood NEG (NEG) Urine Nitrite NEG (NEG) Urine Bilirubin NEG (NEG) Urine Urobilinogen LESS THAN 2.0 MG/DL (LESS THAN 2.0) Urine Leukocyte Esterase SMALL (NEG) Urine RBC LESS THAN 1 /hpf (0-3) Urine WBC 3 /hpf (0-5) Urine Mucus FEW /lpf (OCC) Microscopic Urinalysis Comment CULT NOT INDICATED Differential Diagnosis UTI, dehydration, threatened miscarriage, electrolyte abnormality, symptomatic anemia Narrative Course I, Dr. Saini, have reviewed the advance practice practitioner's documentation and am in agreement, met with the patient face to face, made the diagnosis, and the medical decision making was done by me. *My assessment and Findings: Patient is a 21-year-old female who presents to emergency room with complaints of lower abdominal cramping. Patient reports that she is , she has been having lower, abdominal cramping. She with no fevers or chills, denies n/ v. Reports that she has not followed up with beam saw operator yet. EKG: Sinus flor at 46bpm, qt/qtc: 440/397 hgb 9.7 hct 29.8 platelets: 284 hcg quant: 149,419 I reviewed all labs and studies with patient in detail. Signs and symptoms of when to return to ER was reviewed with patient. Patient requesting to be discharged to home at this time because she is feeling much better. She will return to ER as needed. Understands importance of follow up with beam saw operator. Diagnosis Primary Impression: Threatened Additional Impressions: Near syncope Anemia Qualified Code: D64.9 - Anemia, unspecified type Dehydration Referrals: Cate Blount MD Patient Instructions: General Instructions Additional Instruction: Please follow up with your beam saw operator as soon as possible Pelvic rest until you are seen and cleared by beam saw operator Disposition: 01 DISCHARGE HOME Condition: Stable Cary Saini DO Dec 28, 2016 21:52
--- NOTE | 2016-12-29 08:54 | EKG ---
Date Performed: 12/28/2016 Time Performed: 18:21:00 PTAGE: 21 years EKG: SINUS BRADYCARDIA BORDERLINE ECG PREVIOUS TRACING : 10/01/2016 04.28 No significant change from previous tracing noted. DOCTOR: Jacques Jerome Interpretating Date/Time 12/29/2016 08:51:57
[2017-02-15] MEDS ORDERED: FERR200T PO (13:17)
[2017-02-16] MEDS ORDERED: PREN1TAB50 PO (15:23)
== END 2016-12-28 23:01 | disposition home or self-care (01) ==
LOC: NEPD 15:34
DX: O20.0 Threatened abortion (principal); O99.019 Anemia complicating pregnancy, unspecified trimester; O99.89 Other specified diseases and conditions complicating pregnancy, childbirth and the puerperium; D64.9 Anemia, unspecified; E86.0 Dehydration; R00.1 Bradycardia, unspecified; Z3A.00 Weeks of gestation of pregnancy not specified
CPT/HCPCS: 80053; 81001; 83735; 84702; 85025; 93005; 96360; 99284; J7030

== ENCOUNTER 2016-12-30 03:20 | Emergency (ER) | payer MEDICAID, OTHER ==
[~2016-12-30] VITALS: Ht 170.2 cm; Wt 69.0 kg
[~2016-12-30 03:20] MED LIST changes: -MACR100C2 PO
[2016-12-30 03:22] VITALS: BP 140/85; PULSE 70; RESP 16; TEMP 98.8; O2SAT 100
--- NOTE | 2016-12-30 03:46 | PD ---
HPI Chief Complaint: Abdominal Pain Time Seen by Provider: 03:41 Travel History International Travel<30 days: No Contact w/Intl Traveler<30days: No Traveled to known affect area: No History of Present Illness HPI 21-year-old female came to the emergency room with history of pelvic pain. Patient was seen in the emergency room day before yesterday for the same symptoms. Patient is probably 8 weeks as per her. She does not recall her exact date of her last menstrual period. She thinks it was sometime in October. No spotting. No history of vomiting or fever. Patient is A0. Patient had blood work done 2 days ago along with UA. She was given IV hydration. She has not had any ultrasound for this yet. Her mother is here with her as well. Vital signs were stable in the triage. [facility] Past Medical History Narrative Medical List of her past medical, surgical, social and family history is reviewed from the nursing note. Diminished Hearing: No Immunizations Current: Yes Influenza Vaccination: Yes ?: Menopausal: No : 3 Para: 2 Ovarian Cysts: Yes (removed) Past Surgical History Gynecologic Surgery: Yes (DENDRITE ON OVARY REMOVED) Other Surgery: No Social History Alcohol Use: No Tobacco Use: No Substance Use: No Allergies-Medications (Allergen,Severity, Reaction): Coded Allergies: No Known Allergies (Verified , 12/30/16) Comments No known drug allergies. Reported Meds & Prescriptions Reported Meds & Active Scripts Active Vitamins Plus Lo 27-1 mg ( Vit W/ Ferrous Fumara) 1 Tab Tab 1 Tab PO AC LUNCH 60 Days Narrative Medication List of her home medications reviewed from the nursing note. Review of Systems Except as stated in HPI: all other systems reviewed are Neg Physical Exam Narrative GENERAL: Awake, alert, mild distress SKIN: Focused skin assessment warm/dry. HEAD: Atraumatic. Normocephalic. EYES: Pupils equal and round. No scleral icterus. No injection or drainage. ENT: No nasal bleeding or discharge. Mucous membranes pink and moist. NECK: Trachea midline. No JVD. CARDIOVASCULAR: Regular rate and rhythm. No murmur appreciated. RESPIRATORY: No accessory muscle use. Clear to auscultation. Breath sounds equal bilaterally. GASTROINTESTINAL: Abdomen soft, tender in the pelvic area bilaterally, nondistended. Hepatic and splenic margins not palpable. MUSCULOSKELETAL: No obvious deformities. No clubbing. No cyanosis. No edema. NEUROLOGICAL: Awake and alert. No obvious cranial nerve deficits. Motor grossly within normal limits. Normal speech. PSYCHIATRIC: Appropriate mood and affect; insight and judgment normal. Data Data Last Documented VS Orders Ed Poc Ultrasound (12/30/16 ) MDM Medical Decision Making Medical Screen Exam Complete: Yes Emergency Medical Condition: Yes Medical Record Reviewed: Yes Differential Diagnosis Pelvic pain due to growing uterus in , ectopic Narrative Course 4:10 AM based on my bedside ultrasound patient has in utero . The pain is probably from the growing uterus. I've given her recommendations to take vitamin, drink lots of fluid and find and follow up with an OB as soon as possible. I'm comfortable discharging her. I did not repeat the beta hCG since the previous one was done less than 48 hours ago. Procedures Procedure Narrative Emergency Department Pelvic ultrasound was performed with patient consent. The curvilinear probe was used in the transverse and sagittal views within the suprapubic region revealing single, live intrauterine . heart rate was 171 bpm. See this measures 8 weeks and 3 days by crown rump length. EKG Prior to Arrival: No Diagnosis Primary Impression: First trimester Additional Impression: Pelvic pain Referrals: Primary Care Physician 2 days Additional Instructions: Follow-up with your primary care. Please get an OB for this as soon as possible. Drink lots of fluid. No vaginal intercourse or tampons until you have been seen and advised further by your OB. Take vitamin once every day. Do not smoke, drugs or any alcohol during the . Return to the ER if the condition worsens or any other new concerns. Med/Other Pt SpecificInfo: No Change to Meds Disposition: DISCHARGE HOME Condition: Stable Israel Park MD Dec 30, 2016 03:46 every day. Do not smoke, drugs or any alcohol during the . Return to the ER if the condition worsens or any other new concerns. Med/Other Pt SpecificInfo: No Change to Meds Disposition: DISCHARGE HOME Condition: Israel Phillips MD Dec 30, 2016 03:46
[2017-02-15] MEDS ORDERED: FERR200T PO (13:17)
[2017-02-16] MEDS ORDERED: PREN1TAB50 PO (15:23)
== END 2016-12-30 04:21 | disposition home or self-care (01) ==
LOC: NEPC 03:20
DX: O26.891 Other specified pregnancy related conditions, first trimester (principal); R10.2 Pelvic and perineal pain; Z32.01 Encounter for pregnancy test, result positive
CPT/HCPCS: 99283

== ENCOUNTER 2017-01-15 02:23 | Emergency (ER) | payer OTHER ==
[~2017-01-15] VITALS: Ht 170.2 cm; Wt 70.0 kg
[2017-01-15 02:25] VITALS: BP 129/73; PULSE 63; RESP 16; TEMP 98.7; O2SAT 100
--- NOTE | 2017-01-15 02:57 | PD ---
HPI Chief Complaint: Record Label Internship Problem/Complaint Time Seen by Provider: 02:37 Travel History International Travel<30 days: No Contact w/Intl Traveler<30days: No Traveled to known affect area: No History of Present Illness HPI This is a Ab0 who is at 14 weeks by date, presents still complaints of lower abdominal cramping and vaginal discharge. Patient states that yesterday at about 6:00 PM, she noted some white pink discharge. She reports that she's had cramping over the last 24 hours. She denies any large amount of bleeding. She denies any past of tissue. She denies any dysuria, urgency, frequency. She was unsure of her Rh status and looking through old records she is Rh+. [facility] Past Medical History Medical History: Denies Significant Hx Diminished Hearing: No Immunizations Current: Yes ?: Menopausal: No : 3 Para: 2 Ovarian Cysts: Yes (removed) Past Surgical History Gynecologic Surgery: Yes (DENDRITE ON OVARY REMOVED) Other Surgery: No Social History Alcohol Use: No Tobacco Use: No Substance Use: No Allergies-Medications (Allergen,Severity, Reaction): Coded Allergies: No Known Allergies (Verified , 01/15/17) Reported Meds & Prescriptions Reported Meds & Active Scripts Active Macrobid (Nitrofurantoin Monoh/Nitrofur Macro) 100 Mg Cap 100 Mg PO BID Vitamins Plus Lo 27-1 mg ( Vit W/ Ferrous Fumara) 1 Tab Tab 1 Tab PO AC LUNCH 60 Days Review of Systems Except as stated in HPI: all other systems reviewed are Neg General / Constitutional: No: Fever, Chills HENT: No: Headaches, Lightheadedness Cardiovascular: No: Chest Pain or Discomfort Respiratory: No: Cough, Shortness of Breath Gastrointestinal: Positive: Abdominal Pain (crampy pelvic), No: Nausea, Vomiting Genitourinary: Positive: Pelvic Pain (crampy pelvic), Discharge, Vaginal Bleeding, No: Dysuria Musculoskeletal: No: Myalgias, Weakness, Pain Neurologic: No: Weakness, Headache Physical Exam Narrative GENERAL: Well-nourished, well-developed patient. SKIN: Focused skin assessment warm/dry. HEAD: Normocephalic/atraumatic. EYES: No scleral icterus. No injection or drainage. GASTROINTESTINAL: Abdomen soft, non-tender, nondistended. GENITOURINARY: In the presence of nurse Alejandra. Normal external genitalia without lesions or erythema. Vaginal vault without blood. There is clear discharge noted in the vaginal vault. Cervical os was closed without drainage. No cervical motion tenderness. Uterus nontender and nonenlarged. Bilateral adnexa nontender without masses. Cultures were obtained. MUSCULOSKELETAL: No cyanosis, or edema. NEUROLOGICAL: Awake and alert. Cranial nerves II through XII intact. Motor grossly within normal limits. Five out of 5 muscle strength in all muscle groups. Normal speech. Data Data Last Documented VS Vital Signs Date Time Temp Pulse Resp B/P Pulse Ox O2 Delivery O2 Flow Rate FiO2 01/15/17 02:25 98.7 63 16 129/73 100 Room Air Orders Urinalysis - C+S If Indicated (01/15/17 02:37) Wet Prep Profile (01/15/17 02:37) Gc And Chlamydia Pcr (01/15/17 02:37) Labs Laboratory Tests Test 01/15/17 02:55 Urine Color YELLOW Urine Turbidity CLEAR Urine pH 6.0 Urine Specific [place] 1.034 Urine Protein TRACE mg/dL Urine Glucose (UA) NEG mg/dL Urine Ketones TRACE mg/dL Urine Occult Blood TRACE Urine Nitrite NEG Urine Bilirubin NEG Urine Urobilinogen LESS THAN 2.0 MG/DL Urine Leukocyte Esterase MOD Urine RBC 6 /hpf Urine WBC 9 /hpf Urine Squamous Epithelial <1 /hpf Cells Urine Bacteria RARE /hpf Urine Mucus FEW /lpf Microscopic Urinalysis Comment CULT NOT INDICATED Clue Cells (Wet Prep) NONE SEEN Vaginal Trichomonas (Wet Prep) NONE SEEN Vaginal Yeast (Wet Prep) NONE SEEN MDM Medical Decision Making Medical Screen Exam Complete: Yes Emergency Medical Condition: Yes Differential Diagnosis Threatened miscarriage versus incomplete miscarriage versus UTI versus pelvic infection Narrative Course 21-year-old Ab0 who is at 14 weeks presents today with complaints of vaginal discharge and abdominal cramps. The patient has evidence of UTI on laboratory testing. There is no evidence of blood noted in the vaginal vault and her cervical os was closed fingertip. Bedside ultrasound performed by this physician showed good movement with heart tones in the 150s 160s. She'll be discharged with a prescription for Macrobid. She'll be instructed to follow up with her OB doctor. She is also given a prescription for vitamins. Diagnosis Primary Impression: Cystitis during in second trimester, antepartum Additional Impression: Vaginal discharge Additional Instructions: Pelvic rest. Return if worsening pain, worsening bleeding, or any other reason the concerns. Follow up with OB physician within one to 2 weeks. Med/Other Pt SpecificInfo: Prescription(s) given Scripts Vit W/ Ferrous Fumara ( Vitamins Plus Lo 27-1 mg)1 Tab Tab1 Tab PO AC LUNCH 60 Days Prov:Darren Swanson MD 01/15/17 Nitrofurantoin Monohydrate Macrocrystals (Macrobid)100 Mg [id number] Mg PO BID #14 CAP Ref 0 Prov:Darren Swanson MD 01/15/17 Disposition: 01 DISCHARGE HOME Condition: Stable Darren Swanson MD January 15, 2017 02:57
[2017-01-15 03:22] LABS: BACTERIA, URINE RARE /hpf; BLOOD, URINE TRACE (NEG); COMMENT (UR) CULT NOT INDICATED; CULTURE IF INDICATED CULT NOT INDICATED; GLUCOSE,URINE NEG (NEG); KETONE, URINE TRACE mg/dL (NEG); MUCUS URINE FEW /lpf (OCC); NITRITE,URINE NEG (NEG); SQUAMOUS EPITHELIAL CELL URINE <1 /hpf (0-5); URINE COLOR YELLOW (YELLW/STRAW)
[2017-01-15] MEDS ORDERED: MACR100C2 PO (03:50)
[2017-01-15] MEDS ORDERED: PREN1TAB50 PO (03:51)
[2017-01-15 04:59] LABS: CHLAMYDIA PCR NOT DETECTED (NOT DETECT); NEISSERIA PCR NOT DETECTED (NOT DETECT)
[2017-02-15] MEDS ORDERED: FERR200T PO (13:17)
[2017-02-16] MEDS ORDERED: PREN1TAB50 PO (15:23)
== END 2017-01-15 04:18 | disposition home or self-care (01) ==
LOC: NEPE 02:23
DX: O23.12 Infections of bladder in pregnancy, second trimester (principal); Z3A.14 14 weeks gestation of pregnancy; N89.8 Other specified noninflammatory disorders of vagina
CPT/HCPCS: 81001; 87210; 87491; 87591; 99284

== ENCOUNTER 2017-02-07 04:53 | Emergency (ER) | payer OTHER ==
[~2017-02-07] VITALS: Ht 170.2 cm; Wt 71.8 kg
[~2017-02-07 04:53] MED LIST changes: +MACR100C2 PO
[2017-02-07 04:59] VITALS: BP 115/60; PULSE 74; RESP 16; TEMP 98; O2SAT 98
[2017-02-07] MEDS ORDERED: SODIUM CHLOR 0.9% 1000 ML INJ 1,000 ML IV SCH (05:13)
[2017-02-07] MEDS ORDERED: SODIUM CHLORIDE 0.9% FLUSH 10 ML FLUSH IV FLUSH PRN (05:15)
--- NOTE | 2017-02-07 05:40 | PD ---
HPI Chief Complaint: Syncope/Near-Syncope Time Seen by Provider: 05:07 Travel History International Travel<30 days: No Contact w/Intl Traveler<30days: No Traveled to known affect area: No History of Present Illness HPI 21-year-old female , approximately 14 weeks , brought in by ambulance from work after a possible syncopal episode. 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 She then woke up and her friends lap. Here in the emergency department the patient reports feeling improved. She denies fevers or recent illness. No chest pain or dyspnea. No abdominal pain. She is having some lower back pain. No vaginal bleeding or discharge. No urinary symptoms. PFSH Past Medical History Medical History: Denies Significant Hx Diminished Hearing: No Immunizations Current: Yes ?: LMP: 12/2016 Menopausal: No : 3 Para: 2 Ovarian Cysts: Yes (removed) Past Surgical History Gynecologic Surgery: Yes (DENDRITE ON OVARY REMOVED) Other Surgery: No Social History Alcohol Use: No Tobacco Use: No Substance Use: Yes (MJ LAST SMOKED IN DECEMBER ) Allergies-Medications (Allergen,Severity, Reaction): Coded Allergies: No Known Allergies (Verified , 02/07/17) Reported Meds & Prescriptions Reported Meds & Active Scripts Active Vitamins Plus Lo 27-1 mg ( Vit W/ Ferrous Fumara) 1 Tab Tab 1 Tab PO AC LUNCH 60 Days Macrobid (Nitrofurantoin Monoh/Nitrofur Macro) 100 Mg Cap 100 Mg PO BID Review of Systems Except as stated in HPI: all other systems reviewed are Neg Physical Exam Narrative GENERAL: Well-developed, well-nourished, awake, alert, no acute distress. SKIN: Focused skin assessment warm/dry. HEAD: Atraumatic. Normocephalic. EYES: Pupils equal and round. No scleral icterus. No injection or drainage. ENT: Mucous membranes pink and moist. CARDIOVASCULAR: Regular rate and rhythm. RESPIRATORY: No accessory muscle use. Clear to auscultation. Breath sounds equal bilaterally. GASTROINTESTINAL: Abdomen soft, non-tender, nondistended. MUSCULOSKELETAL: No obvious deformities. No clubbing. No cyanosis. No edema. NEUROLOGICAL: Awake and alert. No obvious cranial nerve deficits. Motor grossly within normal limits. Normal speech. PSYCHIATRIC: Appropriate mood and affect; insight and judgment normal. Data Data Last Documented VS Vital Signs Date Time Temp Pulse Resp B/P Pulse Ox O2 Delivery O2 Flow Rate FiO2 02/07/17 04:59 98.0 74 16 115/60 98 Orders Complete Blood Count With Diff (02/07/17 05:13) Comprehensive Metabolic Panel (02/07/17 05:13) Urinalysis - C+S If Indicated (02/07/17 05:13) Iv Access Insert/Monitor (02/07/17 05:13) Ecg Monitoring (02/07/17 05:13) Oximetry (02/07/17 05:13) Sodium Chlor 0.9% 1000 Ml Inj (Ns 1000 M (02/07/17 05:13) Sodium Chloride 0.9% Flush (Ns Flush) (02/07/17 05:15) Nitrofurantoin Monohyd Macrocr (Macrobid (02/07/17 07:15) Labs Laboratory Tests Test 02/07/17 05:15 White Blood Count 8.8 TH/MM3 Red Blood Count 4.12 MIL/MM3 Hemoglobin 10.0 GM/DL Hematocrit 30.9 % Mean Corpuscular Volume 75.0 FL Mean Corpuscular Hemoglobin 24.4 PG Mean Corpuscular Hemoglobin 32.5 % Concent Red Cell Distribution Width 21.9 % Platelet Count 307 TH/MM3 Mean Platelet Volume 7.5 FL Neutrophils (%) (Auto) 48.4 % Lymphocytes (%) (Auto) 39.9 % Monocytes (%) (Auto) 6.6 % Eosinophils (%) (Auto) 4.7 % Basophils (%) (Auto) 0.4 % Neutrophils # (Auto) 4.3 TH/MM3 Lymphocytes # (Auto) 3.5 TH/MM3 Monocytes # (Auto) 0.6 TH/MM3 Eosinophils # (Auto) 0.4 TH/MM3 Basophils # (Auto) 0.0 TH/MM3 CBC Comment DIFF FINAL Differential Comment Urine Color YELLOW Urine Turbidity HAZY Urine pH 6.0 Urine Specific [place] 1.035 Urine Protein 30 mg/dL Urine Glucose (UA) NEG mg/dL Urine Ketones TRACE mg/dL Urine Occult Blood NEG Urine Nitrite NEG Urine Bilirubin NEG Urine Urobilinogen LESS THAN 2.0 MG/DL Urine Leukocyte Esterase MOD Sodium Level 137 MEQ/L Potassium Level 3.7 MEQ/L Chloride Level 105 MEQ/L Carbon Dioxide Level 23.6 MEQ/L Anion Gap 8 MEQ/L Blood Urea Nitrogen 10 MG/DL Creatinine 0.56 MG/DL Estimat Glomerular Filtration 167 ML/MIN Rate Random Glucose 81 MG/DL Calcium Level 8.6 MG/DL Total Bilirubin 0.2 MG/DL Aspartate Amino Transf 9 U/L (AST/SGOT) Alanine Aminotransferase 16 U/L (ALT/SGPT) Alkaline Phosphatase 62 U/L Total Protein 6.8 GM/DL Albumin 3.4 GM/DL [facility] Medical Decision Making Medical Screen Exam Complete: Yes Emergency Medical Condition: Yes Differential Diagnosis Dehydration, UTI, metabolic abnormality, anemia, PE unlikely, dysrhythmia unlikely Narrative Course Vital signs show heart rate 74, blood pressure 115/60, pulse ox 98% on room air , oral temp of 98F. Bedside transabdominal ultrasound performed by me and shows an IUP with heart rate of 148 bpm. CBC is remarkable for hemoglobin 10, hematocrit 30.9 which is around her baseline, otherwise unremarkable. CMP is unremarkable. UA: Shows hazy urine, moderate leukocyte esterase. Patient will be started on Macrobid for UTI in Patient was made aware of all findings. She is resting comfortably. Her vital signs are normal. At this point I believe she is stable for discharge home with outpatient follow-up with her MOTHER'S HELPER doctor this week. She was informed on when to return to the emergency department. She verbalizes understanding and agreement with plan. Procedures Procedure Narrative Bedside transabdominal ultrasound: Using the curvilinear probe, a transabdominal ultrasound was performed by me and shows an IUP with a heart rate of 148 bpm. Diagnosis Primary Impression: UTI (urinary tract infection) during Qualified Code: O23.42 - UTI (urinary tract infection) during , second trimester Referrals: [facility] Consultant 3 days Additional Instructions: Follow-up with your MOTHER'S HELPER doctor this week. Return to the emergency department for worsening symptoms or any other concerns. Scripts Nitrofurantoin Monohydrate Macrocrystals (Macrobid)100 Mg [id number] Mg PO BID 7 Days Ref 0 Prov:Manny Valentino MD 02/07/17 Disposition: 01 DISCHARGE HOME Condition: Stable Manny Valentino MD Feb 07, 2017 05:40
[2017-02-07 05:53] LABS: AUTOMATED NEUTROPHIL # 4.3 TH/MM3 (1.8-7.7); BASOPHIL % 0.4 % (0.0-2.0); EOSINOPHIL # 0.4 TH/MM3 (0-0.4); EOSINOPHIL % 4.7 % (0.0-4.0); HEMATOCRIT 30.9 % (35.0-46.0); HEMO FLAGS DIFF FINAL; LYMPH % 39.9 % (9.0-44.0); LYMPHOCYTE # 3.5 TH/MM3 (1.0-4.8); MEAN CORPUSCULAR HEMOGLOBIN 24.4 PG (27.0-34.0); MEAN CORPUSCULAR HGB CONC 32.5 % (32.0-36.0); MONO % 6.6 % (0.0-8.0); NEUT % 48.4 % (16.0-70.0); PLATELET COUNT 307 TH/MM3 (150-450); RED BLOOD COUNT 4.12 MIL/MM3 (4.00-5.30); RED CELL DISTRIBUTION WIDTH 21.9 % (11.6-17.2); WHITE BLOOD COUNT 8.8 TH/MM3 (4.0-11.0)
[2017-02-07 06:06] LABS: ALT (GPT) 16 U/L (9-42); ANION GAP 8 MEQ/L (5-15); AST (GOT) 9 U/L (16-38); BICARBONATE 23.6 MEQ/L (21.0-32.0); BLOOD UREA NITROGEN 10 MG/DL (7-18); CHLORIDE 105 MEQ/L (98-107); GLOMERULAR FILTRATION RATE 167 ML/MIN (>89); POTASSIUM 3.7 MEQ/L (3.5-5.1); SODIUM (NA) 137 MEQ/L (136-145)
[2017-02-07 06:08] LABS: ALKALINE PHOSPHATASE 62 U/L (45-117); TOTAL BILIRUBIN ADULT 0.2 MG/DL (0.2-1.0)
[2017-02-07 06:54] LABS: BLOOD, URINE NEG (NEG); GLUCOSE,URINE NEG (NEG); KETONE, URINE TRACE mg/dL (NEG); NITRITE,URINE NEG (NEG)
[2017-02-07 06:55] LABS: URINE COLOR YELLOW (YELLW/STRAW)
[2017-02-07] MEDS ORDERED: MACR100C2 PO (07:11)
[2017-02-07 07:12] LABS: COMMENT (UR) CULTURE INDICATED; CULTURE IF INDICATED CULTURE INDICATED; RBC, URINE 0-3 /hpf (0-3); SQUAMOUS EPITHELIAL CELL URINE 0-5 /hpf (0-5)
[2017-02-07 07:13] LABS: COMMENT2 (UR) CULTURE INDICATED
[2017-02-07] MEDS ORDERED: NITROFURANTOIN MONOHYD MACROCR 100 MG CAP PO ONE (07:15)
[2017-02-07 07:30] VITALS: O2SAT 98
[2017-02-15] MEDS ORDERED: FERR200T PO (13:17)
[2017-02-16] MEDS ORDERED: PREN1TAB50 PO (15:23)
== END 2017-02-07 07:47 | disposition home or self-care (01) ==
LOC: NEPE 04:53
DX: O23.42 Unspecified infection of urinary tract in pregnancy, second trimester (principal); Z3A.14 14 weeks gestation of pregnancy
CPT/HCPCS: 80053; 81001; 85025; 87086; 99284; J7030

== ENCOUNTER → 2017-03-01 | Outpatient (CLI) | payer OTHER ==
[~2017-03-01] MED LIST changes: +FERR200T PO
== END ==
LOC: HPND 11:33
PROVIDERS: ATTEND Obstetrics & Gynecology
DX: O09.212 Supervision of pregnancy with history of pre-term labor, second trimester (principal)
CPT/HCPCS: 76805; 76817

== ENCOUNTER 2017-03-20 01:57 | Observation (INO) | payer OTHER ==
[~2017-03-20] VITALS: Ht 170.2 cm; Wt 71.7 kg
[2017-03-20] MEDS ORDERED: LACTATED RINGER'S 1000 ML INJ 1,000 ML IV ONE (03:15)
[2017-03-20 03:52] LABS: BACTERIA, URINE RARE /hpf; BLOOD, URINE NEG (NEG); COMMENT (UR) CULTURE INDICATED; CULTURE IF INDICATED CULTURE INDICATED; GLUCOSE,URINE NEG (NEG); KETONE, URINE NEG (NEG); MUCUS URINE FEW /lpf (OCC); NITRITE,URINE NEG (NEG); PH, URINE 6.5 (5.0-8.5); SQUAMOUS EPITHELIAL CELL URINE 2 /hpf (0-5); URINE COLOR YELLOW (YELLW/STRAW)
[2017-03-20 03:56] LABS: HEMATOCRIT 26.8 % (35.0-46.0); MEAN CELL VOLUME 77.5 FL (80.0-100.0); MEAN CORPUSCULAR HEMOGLOBIN 24.8 PG (27.0-34.0); PLATELET COUNT 301 TH/MM3 (150-450); RED BLOOD COUNT 3.46 MIL/MM3 (4.00-5.30); RED CELL DISTRIBUTION WIDTH 18.5 % (11.6-17.2); REVIEW FLAG FINAL
--- NOTE | 2017-03-20 03:59 | PD ---
HPI Chief Complaint right sided abdominal pain Date Seen: Mar 20, 2017 Travel History International Travel<30 Days: No Contact w/Intl Traveler<30Days: No History of Present Illness HPI 22 yo @ 20w4d with SOUMYA 08-03-2017 by LMP c/w 17wk US. care with [facility]. This has been uncomplicated. History of PTD @ 30 weeks. Patient presents with right sided abdominal pain. She states the pain started at 2pm yesterday. The onset was sudden and the pain is sharp radiating to the RLQ. The pain is referred to the right when she pushes on the left side. The pain is focal on the right side and worse with walking, standing, moving in the bed. The pain is now constant. She had dinner around 7pm. The pain has become 10/10 later in the evening. She denies nausea or vomiting. No change in BM, no diarrhea or constipation. She reports she has not had FM this . She denies vaginal discharge, LOF, or VB. She had a normal anatomy ultrasound [facility] 03[facility]01-2017 with a normal cervical length, fluid and placenta. Both ovaries were normal. History Past Medical History Narrative Medical Dermoid ovarian cyst - removed Obstetric History Obstetric History 2013 @ 37 weeks 2015 @ 30 weeks, placental abruption suspected, PTL @ 27 weeks Past Surgical History Narrative Surgical Removal of Ovarian Dermoid Cyst Family History Family History: Negative Social History Alcohol Use: No Tobacco Use: No (quit) Substance Abuse: No Allergies-Medications (Allergen,Severity, Reaction): Coded Allergies: No Known Allergies (Verified , 02/11/17) Home Meds Active Scripts Vit W/ Ferrous Fumara ( Vitamins Plus Lo 27-1 mg)1 Tab Tab1 Tab PO AC LUNCH #30 BOTTLE Ref 11 Prov:Shanta Phan 02/16/17 Ferrous Sulfate (Feosol)200 Mg [id number] Mg PO DAILY #30 TAB Ref 2 Prov:Janay Oh 02/15/17 Nitrofurantoin Monohydrate Macrocrystals (Macrobid)100 Mg [id number] Mg PO BID 7 Days Ref 0 Prov:Manny Valentino MD 02/07/17 Review of Systems General / Constitutional: No: Fever, Chills Eyes: No: Visual changes HENT: No: Headaches, Lightheadedness Cardiovascular: No: Chest Pain or Discomfort, Palpitations Respiratory: No: Cough, Short of Breath Gastrointestinal: Abdominal Pain (per hpi), No: Nausea, Vomiting, Diarrhea, Constipation, Changes in Bowel Habits Genitourinary: No: Urgency, Frequency, Dysuria, Pelvic Pain, Discharge, Vaginal Bleeding Musculoskeletal: No: Limited ROM, Weakness Skin: No Rash, No Itching, No Lesions Neurologic: No: Syncope, Focal Abnormalities Hematologic/Lymphatic: No Easy Bruising, No Lymph Node Enlargement Physical Exam Narrative GENERAL: Well-nourished, well-developed patient. Uncomfortable with any movement. SKIN: Warm and dry. HEAD: Normocephalic and atraumatic. EYES: No scleral icterus. No injection or drainage. ENT: No nasal drainage noted. Mucous membranes pink. Airway patent. NECK: trachea midline. No JVD. CARDIOVASCULAR: Regular rate and rhythm without murmurs, gallops, or rubs. RESPIRATORY: Breath sounds equal bilaterally. No accessory muscle use. ABDOMEN/GI: Abdomen soft, tenderness focal on right mid-abdomen, + rebound, + guarding. Referred pain with palpation on left side. Uterus is not tender when isolated. Gravid, FH @ umb GENITOURINARY: External Genitalia: intact and normal in appearance BUS glands: [-] Cervix: grossly normal, closed SSE: small amount of white discharge Wet prep and Gc/CH obtained SVE: Dilatation: closed/thick/high Membranes: intact Uterine Contractions: irritability noted, resolved FHT's: 142 EXTREMITIES: No cyanosis or edema. BACK: Nontender without obvious deformity. No CVA tenderness. NEUROLOGICAL: Awake and alert. Motor and sensory grossly within normal limits. . Normal speech. Data Data Vital Signs Reviewed: Yes Orders Vital Signs (Adult) .ON ADMISSION (03/20/17 03:08) ^ Labor Status (03/20/17 03:08) Urinalysis - C+S If Indicated (03/20/17 03:08) Cbc No Diff, Includes Plts (03/20/17 03:08) Comprehensive Metabolic Panel (03/20/17 03:08) Wet Prep Profile (03/20/17 03:08) Gc And Chlamydia Pcr (03/20/17 03:08) Lactated Ringer's 1000 Ml Inj (Lr 1000 M (03/20/17 03:15) Us Abdomen Lower Limited (03/20/17 ) Labs BEDSIDE US: Uterus is non-tender when prob place on uterus Cephalic Active fetus Normal fluid Anterior placenta FL, AC, HC, BPD obtained. EGA 20w1d MDM Medical Record Reviewed: Yes Narrative Course / MDM 20 weeks Acute right sided abdominal pain Normal pelvic exam Normal status on US Normal bedside US Normal anatomy scan 6-26 with normal placenta, cervical length and normal ovaries CBC, CMP, UA obtained Gc/CH, UA pending Plan Admit for observation US to evaluate appendix General surgery to eval as indicated Desire Tamez MD Mar 20, 2017 03:59
[2017-03-20] MEDS ORDERED: LACTATED RINGER'S 1000 ML INJ 1,000 ML IV SCH (04:04)
--- NOTE | 2017-03-20 04:06 | HHI.HP ---
History & Physical H&P HPI Chief Complaint right sided abdominal pain Date Seen: Mar 20, 2017 Travel History International Travel<30 Days: No Contact w/Intl Traveler<30Days: No History of Present Illness HPI 22 yo @ 20w4d with SOUMYA 08-03-2017 by LMP c/w 17wk US. care with [facility]. This has been uncomplicated. History of PTD @ 30 weeks. Patient presents with right sided abdominal pain. She states the pain started at 2pm yesterday. The onset was sudden and the pain is sharp radiating to the RLQ. The pain is referred to the right when she pushes on the left side. The pain is focal on the right side and worse with walking, standing, moving in the bed. The pain is now constant. She had dinner around 7pm. The pain has become 10/10 later in the evening. She denies nausea or vomiting. No change in BM, no diarrhea or constipation. She reports she has not had FM this . She denies vaginal discharge, LOF, or VB. She had a normal anatomy ultrasound at [facility] 03-01-2017 with a normal cervical length, fluid and placenta. Both ovaries were normal. History (Limited) History Past Medical History Narrative Medical Dermoid ovarian cyst - removed Obstetric History Obstetric History 2013 @ 37 weeks 2015 @ 30 weeks, placental abruption suspected, PTL @ 27 weeks Past Surgical History Narrative Surgical Removal of Ovarian Dermoid Cyst Family History Family History: Negative Social History Alcohol Use: No Tobacco Use: No (quit) Substance Abuse: No Allergies-Medications Allergies-Medications (Allergen,Severity, Reaction): Coded Allergies: No Known Allergies (Verified , 02/11/17) Home Meds Active Scripts Vit W/ Ferrous Fumara ( Vitamins Plus Lo 27-1 mg)1 Tab Tab1 Tab PO AC LUNCH #30 BOTTLE Ref 11 Prov:Shanta Phan 02/16/17 Ferrous Sulfate (Feosol)200 Mg Mqu956 Mg PO DAILY #30 TAB Ref 2 Prov:Janay Oh 02/15/17 Nitrofurantoin Monohydrate Macrocrystals (Macrobid)100 Mg [id number] Mg PO BID 7 Days Ref 0 Prov:Manny Valentino MD 02/07/17 ROS Review of Systems General / Constitutional: No: Fever, Chills Eyes: No: Visual changes HENT: No: Headaches, Lightheadedness Cardiovascular: No: Chest Pain or Discomfort, Palpitations Respiratory: No: Cough, Short of Breath Gastrointestinal: Abdominal Pain (per hpi), No: Nausea, Vomiting, Diarrhea, Constipation, Changes in Bowel Habits Genitourinary: No: Urgency, Frequency, Dysuria, Pelvic Pain, Discharge, Vaginal Bleeding Musculoskeletal: No: Limited ROM, Weakness Skin: No Rash, No Itching, No Lesions Neurologic: No: Syncope, Focal Abnormalities Hematologic/Lymphatic: No Easy Bruising, No Lymph Node Enlargement Physical Exam Physical Exam Narrative GENERAL: Well-nourished, well-developed patient. Uncomfortable with any movement. SKIN: Warm and dry. HEAD: Normocephalic and atraumatic. EYES: No scleral icterus. No injection or drainage. ENT: No nasal drainage noted. Mucous membranes pink. Airway patent. NECK: trachea midline. No JVD. CARDIOVASCULAR: Regular rate and rhythm without murmurs, gallops, or rubs. RESPIRATORY: Breath sounds equal bilaterally. No accessory muscle use. ABDOMEN/GI: Abdomen soft, tenderness focal on right mid-abdomen, + rebound, + guarding. Referred pain with palpation on left side. Uterus is not tender when isolated. Gravid, FH @ umb GENITOURINARY: External Genitalia: intact and normal in appearance BUS glands: [-] Cervix: grossly normal, closed SSE: small amount of white discharge Wet prep and Gc/CH obtained SVE: Dilatation: closed/thick/high Membranes: intact Uterine Contractions: irritability noted, resolved FHT's: 142 EXTREMITIES: No cyanosis or edema. BACK: Nontender without obvious deformity. No CVA tenderness. NEUROLOGICAL: Awake and alert. Motor and sensory grossly within normal limits. . Normal speech. Data Data Data Vital Signs Reviewed: Yes Orders Vital Signs (Adult) .ON ADMISSION (03/20/17 03:08) ^ Labor Status (03/20/17 03:08) Urinalysis - C+S If Indicated (03/20/17 03:08) Cbc No Diff, Includes Plts (03/20/17 03:08) Comprehensive Metabolic Panel (03/20/17 03:08) Wet Prep Profile (03/20/17 03:08) Gc And Chlamydia Pcr (03/20/17 03:08) Lactated Ringer's 1000 Ml Inj (Lr 1000 M (03/20/17 03:15) Us Abdomen Lower Limited (03/20/17 ) Labs BEDSIDE US: Uterus is non-tender when prob place on uterus Cephalic Active fetus Normal fluid Anterior placenta FL, AC, HC, BPD obtained. EGA 20w1d MDM MDM Medical Record Reviewed: Yes Narrative Course / MDM 20 weeks Acute right sided abdominal pain Normal pelvic exam Normal status on US Normal bedside US Normal anatomy scan 6-26 with normal placenta, cervical length and normal ovaries CBC, CMP, UA obtained Gc/CH, UA pending Plan Admit for observation US to evaluate appendix General surgery to eval as indicated Desire Tamez MD Mar 20, 2017 03:59 Desire Tamez MD Mar 20, 2017 04:06
[2017-03-20 04:12] LABS: ALT (GPT) 10 U/L (10-53); ANION GAP 9 MEQ/L (5-15); AST (GOT) 9 U/L (15-37); BICARBONATE 21.2 MEQ/L (21.0-32.0); BLOOD UREA NITROGEN 9 MG/DL (7-18); CHLORIDE 109 MEQ/L (98-107); GLOMERULAR FILTRATION RATE 251 ML/MIN (>89); POTASSIUM 3.7 MEQ/L (3.5-5.1); SODIUM (NA) 139 MEQ/L (136-145)
[2017-03-20 04:14] LABS: ALKALINE PHOSPHATASE 41 U/L (45-117); TOTAL BILIRUBIN ADULT 0.1 MG/DL (0.2-1.0)
[2017-03-20] MEDS ORDERED: ONDANSETRON HCL 4 MG/2 ML VIAL IV PRN (04:15)
--- NOTE | 2017-03-20 04:39 | RADRPT ---
EXAM DATE/TIME: 03/20/2017 04:08 [place] COMPARISON: No previous studies available for comparison. INDICATIONS : Right lower quadrant pain. MEDICAL HISTORY : . SURGICAL HISTORY : Dermoid cyst removed from left ovary. ENCOUNTER: Initial ACUITY: 1 day PAIN SCORE: 5/10 LOCATION: Right lower quadrant AREA EVALUATED: Right lower quadrant and surrounding areas. FINDINGS: Imaging of the right lower quadrant was performed to evaluate for appendicitis. The appendix is not v isualized. There is no ascites. The patient's intrauterine gestation is not fully imaged on this exam ination and therefore not evaluated. The right ovary is normal. CONCLUSION: No free fluid. Normal right ovary. Appendix not visualized. Thanh Parmar MD on March 20, 2017 at 4:37 Board Certified Radiologist. This report was verified electronically.
[2017-03-20 05:03] VITALS: BP 115/65; PULSE 62
[2017-03-20 05:04] VITALS: RESP 18; TEMP 98.3
[2017-03-20] MEDS: NITROFURANTOIN MONOHYD MACROCR 100 MG CAP PO SCH ×2 (05:35→08:39)
[2017-03-20 06:27] LABS: CHLAMYDIA PCR NOT DETECTED (NOT DETECT); NEISSERIA PCR NOT DETECTED (NOT DETECT)
[2017-03-20 08:29] VITALS: RESP 16; TEMP 98.3
[2017-03-20 08:30] VITALS: BP 112/66; PULSE 64
[2017-03-20] MEDS ORDERED: SODIUM CHLORIDE 0.9% FLUSH 10 ML FLUSH IV FLUSH SCH (09:00)
--- NOTE | 2017-03-20 09:01 | PD.OB.ANTE ---
Subjective Antepartum ROS: Reports: Other (Abd pain has improved. Patient slept for the rest of the night. +Good appetitie this am.), Denies: New complaints, Loss of fluid, Vaginal bleeding, Contractions Objective Vital Signs Vital Signs Date Time Temp Pulse Resp B/P Pulse Ox O2 Delivery O2 Flow Rate FiO2 03/20/17 08:30 64 112/66 03/20/17 08:29 98.3 16 03/20/17 05:04 98.3 18 03/20/17 05:03 62 115/65 Lab & Micro Results Test 03/20/17 03/20/17 03/20/17 02:20 02:50 03:15 Urine Color YELLOW Urine Turbidity HAZY Urine pH 6.5 Urine Specific [place] 1.030 Urine Protein TRACE mg/dL Urine Glucose (UA) NEG mg/dL Urine Ketones NEG mg/dL Urine Occult Blood NEG Urine Nitrite NEG Urine Bilirubin NEG Urine Urobilinogen LESS THAN 2.0 MG/DL Urine Leukocyte Esterase MOD Urine RBC 3 /hpf Urine WBC 23 /hpf Urine Squamous Epithelial 2 /hpf Cells Urine Bacteria RARE /hpf Urine Mucus FEW /lpf Microscopic Urinalysis Comment CULTURE INDICATED Clue Cells (Wet Prep) NONE SEEN Vaginal Trichomonas (Wet Prep) NONE SEEN Vaginal Yeast (Wet Prep) NONE SEEN Chlamydia trachomatis DNA NOT DETECTED (PCR) Neisseria gonorrhoeae DNA NOT DETECTED (PCR) White Blood Count 9.0 TH/MM3 Red Blood Count 3.46 MIL/MM3 Hemoglobin 8.6 GM/DL Hematocrit 26.8 % Mean Corpuscular Volume 77.5 FL Mean Corpuscular Hemoglobin 24.8 PG Mean Corpuscular Hemoglobin 32.0 % Concent Red Cell Distribution Width 18.5 % Platelet Count 301 TH/MM3 Mean Platelet Volume 7.2 FL Sodium Level 139 MEQ/L Potassium Level 3.7 MEQ/L Chloride Level 109 MEQ/L Carbon Dioxide Level 21.2 MEQ/L Anion Gap 9 MEQ/L Blood Urea Nitrogen 9 MG/DL Creatinine 0.39 MG/DL Estimat Glomerular Filtration 251 ML/MIN Rate Random Glucose 76 MG/DL Calcium Level 8.0 MG/DL Total Bilirubin 0.1 MG/DL Aspartate Amino Transf 9 U/L (AST/SGOT) Alanine Aminotransferase 10 U/L (ALT/SGPT) Alkaline Phosphatase 41 U/L Total Protein 5.8 GM/DL Albumin 2.8 GM/DL Date/Time Procedure Status Source Growth 7/15/17 02:20 Urine Culture Received Urine Clean Catch Pending ABD US: Imaging of the right lower quadrant was performed to evaluate for appendicitis. The appendix is not visualized. There is no ascites. The patient's intrauterine gestation is not fully imaged on this examination and therefore not evaluated. The right ovary is normal. Physical Exam GENERAL: Well-nourished, well-developed patient. CARDIOVASCULAR: Regular rate RESPIRATORY: No accessory muscle use. ABDOMEN/GI: Abdomen soft, non-tender. Fundus: NT BACK; No CVA tenderness FHT's: 140s EXTREMITIES: No cyanosis or edema, non-tender, without signs of DVT. Assessment and Plan Assessment and Plan 20 weeks Right sided abdominal pain has improved Good appetite this AM, no GI symptoms UTI on UA, culture pending Started Macrobid po Remaining labs WNL, afebrile and no elevated WBC. US wnl, appendix not visualized. normal ovary D/c home precautions reviewed Complete medication for UTI F/u with OB Desire Tamez MD Mar 20, 2017 09:01
[2017-03-20] MEDS ORDERED: MACR100C2 PO (09:04)
== END 2017-03-20 09:17 | disposition home or self-care (01) ==
LOC: HOBED 01:57 → H2EA 04:32
PROVIDERS: ADMIT Obstetrics & Gynecology; ATTEND Obstetrics & Gynecology
DX: O23.42 Unspecified infection of urinary tract in pregnancy, second trimester (principal); Z3A.20 20 weeks gestation of pregnancy
CPT/HCPCS: 76705; 76815; 80053; 81001; 85027; 87086; 87210; 87491; 87591; 99285; G0378; J7120

== ENCOUNTER → 2017-03-31 | Outpatient (CLI) | payer OTHER | LOC: HPND 08:35 | PROVIDERS: ATTEND Obstetrics & Gynecology | DX: O09.212 Supervision of pregnancy with history of pre-term labor, second trimester (principal) | CPT/HCPCS: 76816; 76817 ==

== ENCOUNTER → 2017-04-28 | Outpatient (CLI) | payer OTHER | LOC: HPND 11:09 | PROVIDERS: ATTEND Obstetrics & Gynecology | DX: O09.212 Supervision of pregnancy with history of pre-term labor, second trimester (principal) | CPT/HCPCS: 76816; 76817 ==

== ENCOUNTER 2017-05-27 19:43 | Emergency (ER) | payer OTHER ==
[2017-05-27] MEDS ORDERED: LACTATED RINGER'S 1000 ML INJ 1,000 ML IV SCH (20:25)
--- NOTE | 2017-05-27 20:25 | PD ---
HPI Chief Complaint Cramping, vaginal discharge Travel History International Travel<30 Days: No Contact w/Intl Traveler<30Days: No Known Affected Area: No History of Present Illness HPI 22-year-old . IUP at 30.2. care complicated by lapse in care, delivery at 27 weeks, close spacing Patient presents complaining of thick white discharge for 2 days that is now turned thin in nature she reports associated constant lower back pain. There are no aggravating or alleviating factors to the back pain and no attempted treatments. She reports the onset of abdominal pain today that she states is intermittent in nature and occurs every 5-10 minutes. She believes this is contraction/cramping in nature. There are no aggravating or alleviating factors , no attempted treatments She denies any leaking of fluid or vaginal bleeding. She reports good movement. The patient reports showing findings 1 bottle of water a day. Weeks Gestation: 30 Para: 2 : 3 History Past Medical History Medical History: Denies Significant Hx Obstetric History Obstetric History 102 Full-term 1 PTD 1 at 30 weeks Past Surgical History Surgical History: No Previous Surgery Family History Narrative Family History DM Social History Alcohol Use: No Tobacco Use: No Substance Abuse: No Allergies-Medications (Allergen,Severity, Reaction): Coded Allergies: No Known Allergies (Verified , 02/11/17) Home Meds Active Scripts Nitrofurantoin Monohydrate Macrocrystals (Macrobid) 100 Mg Cap, 100 MG PO BID for Infection for 7 Days, CAP 0 Refills Prov:Desire Tamez MD 03/20/17 Vit W/ Ferrous Fumara ( Vitamins Plus Lo 27-1 mg) 1 Tab Tab, 1 TAB PO AC LUNCH, #30 BOTTLE 11 Refills Prov:Shanta Phan 02/16/17 Ferrous Sulfate (Feosol) 200 Mg Tab, 200 MG PO DAILY for Nutritional Supplement , #30 TAB 2 Refills Prov:Janay Oh 02/15/17 Nitrofurantoin Monohydrate Macrocrystals (Macrobid) 100 Mg Cap, 100 MG PO BID for Infection for 7 Days, CAP 0 Refills Prov:Manny Valentino MD 02/07/17 Review of Systems Except as stated in HPI: all other systems reviewed are Neg Physical Exam Narrative GENERAL: Well-nourished, well-developed patient. SKIN: Warm and dry. HEAD: Normocephalic and atraumatic. EYES: No scleral icterus. No injection or drainage. ENT: No nasal drainage noted. Mucous membranes pink. Airway patent. NECK: Supple, trachea midline. No JVD. CARDIOVASCULAR: Regular rate and rhythm without murmurs, gallops, or rubs. RESPIRATORY: Deferred BREASTS: Bilateral exam showed no masses , no retractions, no nipple discharge. ABDOMEN/GI: Abdomen soft, non-tender, bowel sounds present, no rebound, no guarding Gravid, no CVAT GENITOURINARY: External Genitalia: intact and normal in appearance. Normal BUS. Sterile speculum exam reveals increased discharge that is thin and gritty in nature with the appearance of BV. As grossly normal rugae. There is no cervical or vaginal masses appreciated. Cervix appears closed. SVE closed/thick/high/ posterior FHT's: heart tones are with baselines in the 130s with good accelerations and no decelerations noted. There is moderate long-term variability. The heart rate tracing is reactive for gestational age. This is a category 1 heart rate tracing. Irregular contractions are noted with uterine irritability. EXTREMITIES: No cyanosis or edema. BACK: Nontender without obvious deformity. No CVA tenderness. NEUROLOGICAL: Awake and alert. Motor and sensory grossly within normal limits. Five out of 5 muscle strength in all muscle groups. Normal speech. Musculoskeletal: Grossly normal R IM, gait, muscle strengthening and Psychiatric: Grossly normal memory and affect MDM Plan Assessment/plan: 1. IUP at 30.2 2. contractions and lower back pain: No evidence of labor with contractions and uterine irritability resolved with IV fluids. fibronectin was obtained and negative. Strict labor precautions. Encouraged good hydration. Contractions and cramping resolved with IV fluids. Urine dip negative except trace of leukocytes. 3. Lower back pain appears to be musculoskeletal in nature. Recommend comfort measures. 4. well-being reassuring testing with reactive NST and category 1 heart rate tracing. kick counts daily. 5. History of delivery 6. Close spacing 7. Labs and care: Patient was counseled to receive adequate and appropriate care 8. Follow up with primary provider in 2-3 days or sooner if needed Shanta Minor MD May 27, 2017 20:25
== END 2017-05-27 23:48 | disposition home or self-care (01) ==
LOC: HOBED 19:43
DX: O60.03 Preterm labor without delivery, third trimester (principal); Z3A.31 31 weeks gestation of pregnancy; M54.5 Low back pain
CPT/HCPCS: 82731; 87210; 99284

== ENCOUNTER 2017-06-03 21:40 | Emergency (ER) | payer OTHER ==
[~2017-06-03 21:40] MED LIST changes: -MACR100C2 PO
--- NOTE | 2017-06-03 22:08 | HHI.HP ---
HPI Chief Complaint Note entered in care, please see OB ED note Travel History International Travel<30 Days: No Contact w/Intl Traveler<30Days: No Known Affected Area: No Allergies-Medications (Allergen,Severity, Reaction): Coded Allergies: No Known Allergies (Verified , 05/31/17) Home Meds Active Scripts Vit W/ Ferrous Fumara ( Vitamins Plus Lo 27-1 mg) 1 Tab Tab, 1 TAB PO AC LUNCH, #30 BOTTLE 11 Refills Prov:Shanta Phan 02/16/17 Ferrous Sulfate (Feosol) 200 Mg Tab, 200 MG PO DAILY for Nutritional Supplement , #30 TAB 2 Refills Prov:Janay Oh 02/15/17 Discontinued Scripts Nitrofurantoin Monohydrate Macrocrystals (Macrobid) 100 Mg Cap, 100 MG PO BID for Infection for 7 Days, CAP 0 Refills Prov:Desire Tamez MD 03/20/17 Nitrofurantoin Monohydrate Macrocrystals (Macrobid) 100 Mg Cap, 100 MG PO BID for Infection for 7 Days, CAP 0 Refills Prov:Manny Valentino MD 02/07/17 Review of Systems Except as stated in HPI: all other systems reviewed are Neg Caprini VTE Risk Assessment Caprini VTE Risk Assessment: No/Low Risk (score <= 1) Caprini Risk Assessment Model Point Value = 1 Point Value = 2 Point Value = 3 Point Value = 5 Age 41-60 Minor surgery BMI > 25 kg/m2 Swollen legs Varicose veins or History of unexplained or recurrent spontaneous Oral contraceptives or hormone replacement Sepsis (< 1 month) Serious lung disease, including pneumonia (< 1 month) Abnormal pulmonary function Acute myocardial infarction Congestive heart failure (< 1 month) History of inflammatory bowel disease Medical patient at bed rest Age 61-74 Arthroscopic surgery Major open surgery (> 45 min) Laparoscopic surgery (> 45 min) Malignancy Confined to bed (> 72 hours) Immobilizing plaster cast Central venous access Age >= 75 History of VTE Family history of VTE Factor V Leiden Prothrombin [id number] Lupus anticoagulant Anticardiolipin antibodies Elevated serum homocysteine Heparin-induced thrombocytopenia Other congenital or acquired thrombophilia Stroke (< 1 month) Elective arthroplasty Hip, pelvis, or leg fracture Acute spinal cord injury (< 1 month) Prophylaxis Regimen Total Risk Factor Score Risk Level Prophylaxis Regimen 0-1 Low Early ambulation 2 Moderate Order ONE of the following: *Sequential Compression Device (SCD) *Heparin 5000 units SQ BID 3-4 Higher Order ONE of the following medications: *Heparin 5000 units SQ TID *Enoxaparin/Lovenox 40 mg SQ daily (WT < 150 kg, CrCl > 30 mL/min) *Enoxaparin/Lovenox 30 mg SQ daily (WT < 150 kg, CrCl > 10-29 mL/min) *Enoxaparin/Lovenox 30 mg SQ BID (WT < 150 kg, CrCl > 30 mL/min) AND/OR *Sequential Compression Device (SCD) 5 or more Highest Order ONE of the following medications: *Heparin 5000 units SQ TID (Preferred with Epidurals) *Enoxaparin/Lovenox 40 mg SQ daily (WT < 150 kg, CrCl > 30 mL/min) *Enoxaparin/Lovenox 30 mg SQ daily (WT < 150 kg, CrCl > 10-29 mL/min) *Enoxaparin/Lovenox 30 mg SQ BID (WT < 150 kg, CrCl > 30 mL/min) AND *Sequential Compression Device (SCD) Data Data Orders Orders Vital Signs (Adult) .ON ADMISSION (06/03/17 22:05) ^ Labor Status (06/03/17 22:05) Urinalysis - C+S If Indicated (06/03/17 22:05) Diet Liquid (06/04/17 Breakfast) ^ Hydration (06/03/17 22:05) Fibronectin (06/03/17 22:05) Shanta Minor MD Jun 03, 2017 22:08
[2017-06-03 22:18] VITALS: BP 109/65; PULSE 81; TEMP 98.4
[2017-06-03 22:19] VITALS: RESP 18
--- NOTE | 2017-06-03 22:20 | PD ---
HPI Chief Complaint Contractions Travel History International Travel<30 Days: No Contact w/Intl Traveler<30Days: No Known Affected Area: No History of Present Illness HPI 22-year-old 102, IUP at 31 weeks care complicated by history of delivery at 31 weeks The patient presents complaining of vaginal throbbing today. The this is intermittent and there are no aggravating or alleviating factors and no attempted treatments. She also reports nonpainful tightening that occurs every 15 minutes but has increased in frequency and now to mild cramping sensation. The cramping/contractions started about 2-3 PM. She reports good movement. She denies any leaking of fluid or vaginal bleeding. She has no other complaints at this time. Weeks Gestation: 31 Para: 2 : 3 History Past Medical History Medical History: Denies Significant Hx Obstetric History Obstetric History 102 One full-term 1 at 31 weeks Past Surgical History Narrative Surgical Laparoscopic removal of dermoid Family History Narrative Family History DM Social History Alcohol Use: No Tobacco Use: No Substance Abuse: No Allergies-Medications (Allergen,Severity, Reaction): Coded Allergies: No Known Allergies (Verified , 05/31/17) Home Meds Active Scripts Vit W/ Ferrous Fumara ( Vitamins Plus Lo 27-1 mg) 1 Tab Tab, 1 TAB PO AC LUNCH, #30 BOTTLE 11 Refills Prov:Shanta Phan 02/16/17 Ferrous Sulfate (Feosol) 200 Mg Tab, 200 MG PO DAILY for Nutritional Supplement , #30 TAB 2 Refills Prov:Janay Oh 02/15/17 Discontinued Scripts Nitrofurantoin Monohydrate Macrocrystals (Macrobid) 100 Mg Cap, 100 MG PO BID for Infection for 7 Days, CAP 0 Refills Prov:Desire Tamez MD 03/20/17 Nitrofurantoin Monohydrate Macrocrystals (Macrobid) 100 Mg Cap, 100 MG PO BID for Infection for 7 Days, CAP 0 Refills Prov:Manny Valentino MD 02/07/17 Review of Systems Except as stated in HPI: all other systems reviewed are Neg Physical Exam Narrative GENERAL: Well-nourished, well-developed patient. SKIN: Warm and dry. HEAD: Normocephalic and atraumatic. EYES: No scleral icterus. No injection or drainage. ENT: No nasal drainage noted. Mucous membranes pink. Airway patent. NECK: Supple, trachea midline. No JVD. CARDIOVASCULAR: Regular rate and rhythm without murmurs, gallops, or rubs. RESPIRATORY: Breath sounds equal bilaterally. No accessory muscle use. BREASTS: Bilateral exam showed no masses , no retractions, no nipple discharge. ABDOMEN/GI: Abdomen soft, non-tender, bowel sounds present, no rebound, no guarding Gravid GENITOURINARY: External Genitalia: intact and normal in appearance. Normal BUS. Some slightly increased discharge. Grossly normal rugae. No cervical or vaginal masses appreciated. Wet prep and fibronectin were obtained. SVE 09/30/-3 , posterior. SVE unchanged on repeat examination FHT's: heart rate baseline in the 130s with moderate long-term variability , good accelerations, no repetitive decelerations. FHR is reassuring appropriate for gestational age with reactive NST and category 1 heart rate tracing EXTREMITIES: No cyanosis or edema. BACK: Nontender without obvious deformity. No CVA tenderness. NEUROLOGICAL: Awake and alert. Motor and sensory grossly within normal limits. Five out of 5 muscle strength in all muscle groups. Normal speech. Musculoskeletal: Grossly normal range of motion, gait, muscle strength Psychiatric: Grossly normal memory and affect Data Data Orders Orders Vital Signs (Adult) .ON ADMISSION (06/03/17 22:05) ^ Labor Status (06/03/17 22:05) Urinalysis - C+S If Indicated (06/03/17 22:05) Diet Liquid (06/04/17 Breakfast) ^ Hydration (06/03/17 22:05) Fibronectin (06/03/17 22:05) MDM Plan Assessment/plan: 1. IUP at 31 weeks 2. History of delivery at 31 weeks 3. contractions: No evidence of labor with negative fibronectin and cervical exam unchanged over observation period and serial exams. Contractions resolved with by mouth hydration and terbutaline 1. Strict labor precautions 4. well-being: Reassuring testing with reactive NST. FHR reassuring and appropriate for gestational age. kick counts daily. 5. UA: No evidence of UTI negative 6. Wet prep: 7. Follow up with primary OB in 2-3 days or sooner if needed Diagnosis Diagnosis: Primary Impression: 31 weeks gestation of Additional Impression: False labor before 37 completed weeks of gestation Disposition: 01 DISCHARGE HOME Condition: Good Patient Instructions: Labor (ED), Early Labor Signs (ED), Movement (ED) Shanta Minor MD Jun 03, 2017 22:20
[2017-06-03 23:00] LABS: BLOOD, URINE NEG (NEG); COMMENT (UR) CULT NOT INDICATED; CULTURE IF INDICATED CULT NOT INDICATED; GLUCOSE,URINE NEG (NEG); KETONE, URINE NEG (NEG); NITRITE,URINE NEG (NEG); PH, URINE 6.5 (5.0-8.5); SQUAMOUS EPITHELIAL CELL URINE 1 /hpf (0-5); URINE COLOR LIGHT-YELLOW (YELLW/STRAW)
[2017-06-03] MEDS ORDERED: TERBUTALINE INJ 1 MG/ML AMP ONE (23:22)
[2017-06-03 23:25] VITALS: BP 115/68; PULSE 66
[2017-06-03 23:30] VITALS: RESP 18
== END 2017-06-04 10:02 | disposition home or self-care (01) ==
LOC: HOBED 21:40
DX: O47.03 False labor before 37 completed weeks of gestation, third trimester (principal); Z3A.31 31 weeks gestation of pregnancy
CPT/HCPCS: 81001; 82731; 87210; 96372; 99284; J3105

== ENCOUNTER 2017-06-22 20:12 | Emergency (ER) | payer OTHER ==
--- NOTE | 2017-06-22 21:00 | PD ---
History of Present Illness History of Present Illness HPI Chief Complaint ctx q15-30 mins Date Seen: Jun 22, 2017 Time Seen: 20:55 Travel History International Travel<30 Days: No Contact w/Intl Traveler<30Days: No Known Affected Area: No History of Present Illness HPI Pt is a 22y/o @ 34.0wks who presents for infrequent ctx. is complicated by a h/o PPROM @ 27wks in G2 with subsequent at 30wks. She has not been compliant with 17-OHP injections and received only one and states she was told it's now too late to take. She denies LOF or VB. +FM. Weeks Gestation: 34 Para: 2 : 3 History (Limited) History Past Medical History Medical History: Denies Significant Hx Obstetric History Obstetric History 1. @ term 2. PPROM @ 27wks, @ 30wks 3. current Past Surgical History Narrative Surgical LSC ovarian cystectomy Family History Family History: Negative Social History Alcohol Use: No Tobacco Use: No Substance Abuse: No Allergies-Medications Allergies-Medications (Allergen,Severity, Reaction): Coded Allergies: No Known Allergies (Verified , 05/31/17) Home Meds Active Scripts Vit W/ Ferrous Fumara ( Vitamins Plus Lo 27-1 mg) 1 Tab Tab, 1 TAB PO AC LUNCH, #30 BOTTLE 11 Refills Prov:Shanta Phan [facility] 02/16/17 Ferrous Sulfate (Feosol) 200 Mg Tab, 200 MG PO DAILY for Nutritional Supplement , #30 TAB 2 Refills Prov:Janay Oh [facility] 02/15/17 ROS Review of Systems Except as stated in HPI: all other systems reviewed are Neg Physical Exam Physical Exam Narrative GENERAL: Well-nourished, well-developed patient. SKIN: Warm and dry. HEAD: Normocephalic and atraumatic. EYES: No scleral icterus. No injection or drainage. ENT: No nasal drainage noted. ABDOMEN/GI: Abdomen soft, non-tender, gravid EXTREMITIES: No cyanosis or edema. BACK: Nontender without obvious deformity. No CVA tenderness. NEUROLOGICAL: Awake and alert. Motor and sensory grossly within normal limits. FHT's: Category: 1 Baseline: 135 Reactive: yes Variability: moderate Decels: absent TOCO: no ctx seen Data Data Data Vital Signs Reviewed: Yes Orders Orders Vital Signs (Adult) .ON ADMISSION (06/22/17 20:54) ^ Labor Status (06/22/17 20:54) Urinalysis - C+S If Indicated (06/22/17 20:54) ^ Non Stress Test (06/22/17 20:54) Ed Discharge Order (06/22/17 20:54) OB Assessment/Plan Assessment/Plan No ctx on monitor. UA c/w dehydration. Advised to increased PO intake. Stable for d/c home. Lissy Mohan MD Jun 22, 2017 21:00
== END 2017-06-22 22:36 | disposition home or self-care (01) ==
LOC: HOBED 20:12
DX: O47.03 False labor before 37 completed weeks of gestation, third trimester (principal); Z3A.34 34 weeks gestation of pregnancy
CPT/HCPCS: 59025

== ENCOUNTER 2017-06-30 11:58 | Observation (INO) | payer OTHER ==
[~2017-06-30] VITALS: Ht 170.2 cm; Wt 93.0 kg
[2017-06-30] MEDS ORDERED: LACTATED RINGER'S 1000 ML INJ 1,000 ML IV PRN (13:05)
[2017-06-30] MEDS ORDERED: OXYTOCIN 30 UNITS-500ML PREMIX 500 ML IV ONE (13:15)
[2017-06-30] MEDS ORDERED: LIDOCAINE HCL 1% 50 ML VIAL INFIL PRN (13:15)
[2017-06-30] MEDS ORDERED: LIDOCAINE HCL 1% 50 ML VIAL I-DERMAL PRN (13:15)
[2017-06-30] MEDS ORDERED: ONDANSETRON HCL 4 MG/2 ML VIAL IV PUSH PRN (13:15)
[2017-06-30] MEDS ORDERED: LACTATED RINGER'S 1000 ML INJ 1,000 ML IV ONE (13:15)
[2017-06-30] MEDS ORDERED: MINERAL OIL 10 ML VIAL TOPICAL PRN (13:15)
[2017-06-30] MEDS ORDERED: CITRIC ACID-SODIUM CITRATE LIQ 30 ML UDC PO SCH (13:15)
[2017-06-30] MEDS ORDERED: SODIUM CHLORID 0.9% 500 ML INJ 500 ML IV PRN (13:15)
--- NOTE | 2017-06-30 13:15 | PD ---
HPI Date Seen: Jun 30, 2017 Time Seen: 13:00 (Flavio Yang MD R2) Travel History International Travel<30 Days: No Contact w/Intl Traveler<30Days: No (Flavio Yang MD R2) History of Present Illness HPI 22-year-old at 35/1 weeks gestation presenting with contractions since earlier this morning. She didn't think much of the but first, but they failed to resolve and become more painful. They're about 10 minutes apart. She has a history of delivery at about 27 weeks, and she was supposed to be taking progesterone this but was lost to follow up due to having care trouble (seen at 15 weeks, then not again til 30 weeks). Denies VB, LOF. Endorses FM. Denies CP/SOB or dysuria. (Flavio Yang MD R2) History Past Medical History Medical History: Denies Significant Hx (Flavio Yang MD R2) Obstetric History Obstetric History Delivery at 27 weeks, unknown reason per patient (Flavio Yang MD R2) Past Surgical History Surgical History: No Previous Surgery (Flavio Yang MD R2) Family History Family History: Negative (Flavio Yang MD R2) Social History Alcohol Use: No Tobacco Use: No Substance Abuse: No (Flavio Yang MD R2) Allergies-Medications (Allergen,Severity, Reaction): Coded Allergies: No Known Allergies (Verified Adverse Reaction, Unknown, 07/05/17) Home Meds Active Scripts Vit W/ Ferrous Fumara ( Vitamins Plus Lo 27-1 mg) 1 Tab Tab, 1 TAB PO AC LUNCH, #30 BOTTLE 11 Refills Prov:Shanta PhanP 02/16/17 Ferrous Sulfate (Feosol) 200 Mg Tab, 200 MG PO DAILY for Nutritional Supplement , #30 TAB 2 Refills Prov:Janay Oh [facility] 02/15/17 Review of Systems Except as stated in HPI: all other systems reviewed are Neg (Flavio Yang MD R2) Physical Exam Narrative GENERAL: Well-nourished, well-developed patient. SKIN: Warm and dry. HEAD: Normocephalic and atraumatic. EYES: No scleral icterus. No injection or drainage. ENT: No nasal drainage noted. Mucous membranes pink. Airway patent. CARDIOVASCULAR: Regular rate and rhythm without murmurs, gallops, or rubs. RESPIRATORY: Breath sounds equal bilaterally. No accessory muscle use. ABDOMEN/GI: Abdomen soft, non-tender, no rebound, no guarding GENITOURINARY: Cervix: midposition Dilation: 3-4 cm Effacement: 50% Presentation: Vertex Membranes: Intact Contractions: Every 10-12 min FHT's: Category: 1 Baseline: 145 Reactive: Y Variability: moderate Decels: N EXTREMITIES: No cyanosis or edema. NEUROLOGICAL: Awake and alert. Motor and sensory grossly within normal limits. Normal speech. (Flavio Yang MD R2) Data Data Vital Signs Reviewed: Yes Orders Orders Vital Signs (Adult) .ON ADMISSION (06/30/17 12:11) ^ Labor Status (06/30/17 12:11) ^ Non Stress Test (06/30/17 12:11) ^ Hydration (06/30/17 12:11) Urinalysis - C+S If Indicated (06/30/17 12:50) Code Status (06/30/17 13:05) Vital Signs (Adult) .Per protocol (06/30/17 13:05) Activity Oob Ad Ramona (06/30/17 13:05) Heart (06/30/17 13:05) Amnioinfusion (06/30/17 13:05) Urinary Catheter Management .ONCE (06/30/17 13:05) Diet Liquid (06/30/17 Lunch) Lactated Ringer's 1000 Ml Inj (Lr 1000 M (06/30/17 13:05) Lactated Ringer's 1000 Ml Inj (Lr 1000 M (06/30/17 13:05) Sodium Chlorid 0.9% 500 Ml Inj (Ns 500 M (06/30/17 13:15) Sodium Chlor 0.9% 1000 Ml Inj (Ns 1000 M (06/30/17 13:25) Lidocaine 1% Inj (50 Ml) (Xylocaine 1% I (06/30/17 13:15) Citric Acid-Sodium Citrate Liq (Bicitra (06/30/17 13:15) Ondansetron Inj (Zofran Inj) (06/30/17 13:15) Fentanyl Inj (Fentanyl Inj) (06/30/17 13:15) Fentanyl Inj (Fentanyl Inj) (06/30/17 13:15) Complete Blood Count With Diff (06/30/17 13:05) Hold Clot (06/30/17 13:05) Abo/Rh Blood Type (06/30/17 13:05) Drug Screen, Random Urine (06/30/17 13:05) Resp Oxygen Non Rebreathe Mask (06/30/17 ) Oxytocin 30 Units-500ml Premix (Pitocin (06/30/17 13:15) Lidocaine 1% Inj (50 Ml) (Xylocaine 1% I (06/30/17 13:15) Light Mineral Oil (Muri-Lube Oil) (06/30/17 13:15) Place In Observation (06/30/17 ) Lactated Ringer's 1000 Ml Inj (Lr 1000 M (06/30/17 13:15) Ob (2e) Additional Admit Info (06/30/17 13:07) Group B Strep: Negative (Flavio Yang MD R2) MDM Medical Record Reviewed: Yes Narrative Course / MDM 22-year-old at 35/1 weeks gestation with history of delivery at 27 weeks presenting in suspected early labor #1 IUP Category 1 tracing, reassuring Continuous monitoring while on labor and delivery #2 GBS negative #3 cervical dilation with infrequent contractions Likely labor, but could be false or threatened labor - Place under 24-hour observation, if patient makes cervical change admitted to labor and delivery - Routine labor care - Betamethasone 12 mg IM daily 2 - LR bolus 1000 mL IV x1 - Re-check cervix in 2-3 hours. If no change, keep for remainder of 24 hr obs. Otherwise admit to L&D. (Flavio Yang MD R2) Collaborating MD Comments Patient seen and evaluated. Will admit for observation of labor (Jeanette Lerner MD) Flavio Yang MD R2 Jun 30, 2017 13:14 Jeanette Lerner MD Jul 14, 2017 09:29
[2017-06-30] MEDS ORDERED: SODIUM CHLOR 0.9% 1000 ML INJ 1,000 ML IV PRN (13:25)
[2017-06-30] MEDS: LACTATED RINGER'S 1000 ML INJ 1,000 ML IV SCH ×3 (13:25→22:32)
[2017-06-30 13:49] LABS: BLOOD, URINE NEG (NEG); COMMENT (UR) CULT NOT INDICATED; CULTURE IF INDICATED CULT NOT INDICATED; GLUCOSE,URINE NEG (NEG); KETONE, URINE TRACE mg/dL (NEG); MUCUS URINE FEW /lpf (OCC); NITRITE,URINE NEG (NEG); PH, URINE 6.5 (5.0-8.5); SQUAMOUS EPITHELIAL CELL URINE <1 /hpf (0-5); URINE COLOR YELLOW (YELLW/STRAW)
--- NOTE | 2017-06-30 13:55 | HHI.HP ---
History & Physical H&P HPI HPI Date Seen: Jun 30, 2017 Time Seen: 13:00 Travel History International Travel<30 Days: No Contact w/Intl Traveler<30Days: No History of Present Illness HPI 22-year-old at 35/1 weeks gestation presenting with contractions since earlier this morning. She didn't think much of the but first, but they failed to resolve and become more painful. They're about 10 minutes apart. She has a history of delivery at about 27 weeks, and she was supposed to be taking progesterone this but was lost to follow up due to having care trouble (seen at 15 weeks, then not again til 30 weeks). Denies VB, LOF. Endorses FM. Denies CP/SOB or dysuria. History (Limited) History Past Medical History Medical History: Denies Significant Hx Obstetric History Obstetric History Delivery at 27 weeks, unknown reason per patient Past Surgical History Surgical History: No Previous Surgery Family History Family History: Negative Social History Alcohol Use: No Tobacco Use: No Substance Abuse: No Allergies-Medications Allergies-Medications (Allergen,Severity, Reaction): Coded Allergies: No Known Allergies (Verified , 05/31/17) Home Meds Active Scripts Vit W/ Ferrous Fumara ( Vitamins Plus Lo 27-1 mg) 1 Tab Tab, 1 TAB PO AC LUNCH, #30 BOTTLE 11 Refills Prov:Shanta Phan [facility] 02/16/17 Ferrous Sulfate (Feosol) 200 Mg Tab, 200 MG PO DAILY for Nutritional Supplement , #30 TAB 2 Refills Prov:Janay Oh [facility] 02/15/17 ROS Review of Systems Except as stated in HPI: all other systems reviewed are Neg Physical Exam Physical Exam Narrative GENERAL: Well-nourished, well-developed patient. SKIN: Warm and dry. HEAD: Normocephalic and atraumatic. EYES: No scleral icterus. No injection or drainage. ENT: No nasal drainage noted. Mucous membranes pink. Airway patent. CARDIOVASCULAR: Regular rate and rhythm without murmurs, gallops, or rubs. RESPIRATORY: Breath sounds equal bilaterally. No accessory muscle use. ABDOMEN/GI: Abdomen soft, non-tender, no rebound, no guarding GENITOURINARY: Cervix: midposition Dilation: 3-4 cm Effacement: 50% Presentation: Vertex Membranes: Intact Contractions: Every 10-12 min FHT's: Category: 1 Baseline: 145 Reactive: Y Variability: moderate Decels: N EXTREMITIES: No cyanosis or edema. NEUROLOGICAL: Awake and alert. Motor and sensory grossly within normal limits. Normal speech. Data Data Data Vital Signs Reviewed: Yes Orders Orders Vital Signs (Adult) .ON ADMISSION (06/30/17 12:11) ^ Labor Status (06/30/17 12:11) ^ Non Stress Test (06/30/17 12:11) ^ Hydration (06/30/17 12:11) Urinalysis - C+S If Indicated (06/30/17 12:50) Code Status (06/30/17 13:05) Vital Signs (Adult) .Per protocol (06/30/17 13:05) Activity Oob Ad Ramona (06/30/17 13:05) Heart (06/30/17 13:05) Amnioinfusion (06/30/17 13:05) Urinary Catheter Management .ONCE (06/30/17 13:05) Diet Liquid (06/30/17 Lunch) Lactated Ringer's 1000 Ml Inj (Lr 1000 M (06/30/17 13:05) Lactated Ringer's 1000 Ml Inj (Lr 1000 M (06/30/17 13:05) Sodium Chlorid 0.9% 500 Ml Inj (Ns 500 M (06/30/17 13:15) Sodium Chlor 0.9% 1000 Ml Inj (Ns 1000 M (06/30/17 13:25) Lidocaine 1% Inj (50 Ml) (Xylocaine 1% I (06/30/17 13:15) Citric Acid-Sodium Citrate Liq (Bicitra (06/30/17 13:15) Ondansetron Inj (Zofran Inj) (06/30/17 13:15) Fentanyl Inj (Fentanyl Inj) (06/30/17 13:15) Fentanyl Inj (Fentanyl Inj) (06/30/17 13:15) Complete Blood Count With Diff (06/30/17 13:05) Hold Clot (06/30/17 13:05) Abo/Rh Blood Type (06/30/17 13:05) Drug Screen, Random Urine (06/30/17 13:05) Resp Oxygen Non Rebreathe Mask (06/30/17 ) Oxytocin 30 Units-500ml Premix (Pitocin (06/30/17 13:15) Lidocaine 1% Inj (50 Ml) (Xylocaine 1% I (06/30/17 13:15) Light Mineral Oil (Muri-Lube Oil) (06/30/17 13:15) Place In Observation (06/30/17 ) Lactated Ringer's 1000 Ml Inj (Lr 1000 M (06/30/17 13:15) Ob (2e) Additional Admit Info (06/30/17 13:07) Group B Strep: Negative MDM MDM Medical Record Reviewed: Yes Narrative Course / MDM 22-year-old at 35/1 weeks gestation with history of delivery at 27 weeks presenting in suspected early labor #1 IUP Category 1 tracing, reassuring Continuous monitoring while on labor and delivery #2 GBS negative #3 cervical dilation with infrequent contractions Likely labor, but could be false or threatened labor - Place under 24-hour observation, if patient makes cervical change admitted to labor and delivery - Routine labor care - Betamethasone 12 mg IM daily 2 - LR bolus 1000 mL IV x1 - Re-check cervix in 2-3 hours. If no change, keep for remainder of 24 hr obs. Otherwise admit to L&D. Flavio Yang MD R2 Jun 30, 2017 13:55
[2017-06-30 14:06] VITALS: BP 119/57; PULSE 78
[2017-06-30 14:08] VITALS: RESP 18
[2017-06-30 14:11] LABS: AUTOMATED NEUTROPHIL # 7.6 TH/MM3 (1.8-7.7); BASOPHIL % 0.2 % (0.0-2.0); EOSINOPHIL # 0.2 TH/MM3 (0-0.4); EOSINOPHIL % 2.2 % (0.0-4.0); HEMATOCRIT 27.8 % (35.0-46.0); HEMO FLAGS DIFF FINAL; LYMPHOCYTE # 2.7 TH/MM3 (1.0-4.8); MEAN CELL VOLUME 72.7 FL (80.0-100.0); MEAN CORPUSCULAR HEMOGLOBIN 23.1 PG (27.0-34.0); MEAN CORPUSCULAR HGB CONC 31.7 % (32.0-36.0); MONO % 6.4 % (0.0-8.0); NEUT % 67.2 % (16.0-70.0); PLATELET COUNT 382 TH/MM3 (150-450); RED BLOOD COUNT 3.82 MIL/MM3 (4.00-5.30); RED CELL DISTRIBUTION WIDTH 17.1 % (11.6-17.2); WHITE BLOOD COUNT 11.2 TH/MM3 (4.0-11.0)
[2017-06-30] MEDS: BETAMETHASONE SOD PHOS/ACETATE SUSP 30 MG/5 ML VIAL IM SCH (14:16)
[2017-06-30 18:00] VITALS: BP 125/64; PULSE 71
[2017-06-30 18:03] VITALS: RESP 16
[2017-06-30 19:24] VITALS: RESP 18; TEMP 98.4
[2017-06-30 19:25] VITALS: BP 128/61; PULSE 82
--- NOTE | 2017-06-30 22:23 | PD.LABORPN ---
Subjective Subjective OB note : Called to see The patient for return of contractions and pain Objective Vital Signs Vital Signs Date Time Temp Pulse Resp B/P (MAP) Pulse Ox O2 Delivery O2 Flow Rate FiO2 06/30/17 19:25 82 128/61 (83) 06/30/17 19:24 98.4 18 06/30/17 18:03 16 06/30/17 18:00 71 125/64 (84) Objective Pelvic Exam: Cervix: [-] Dilatation: [4-5-] Effacement: [-50] Station: [-3] Presentation: [vtx-] Membranes: [intact ] Uterine Contractions: [q4 min-] FHT's: Category: [1-] Baseline: [-133] Reactive: [yes-] Variability: [mod-] Decels: [-0] Weeks Gestation: 35 Gest Age Assessed Date: Jun 30, 2017 Gest Age Assessed Time: 12:00 Pt started active labor?: No Medical induction of labor?: No Artificial rupture of membrane: No Assessment/Plan Assessment and Plan 35 week intrauterine with labor, reactive NST, positive contractions, with no change in cervix from previous exam Plan continue IV hydration, terbutaline subcutaneous and IV narcotic for pain and sedation Kumar Camacho II, MD Jun 30, 2017 22:23
[2017-06-30] MEDS ORDERED: TERBUTALINE INJ 1 MG/ML AMP SQ PRN (22:30)
[2017-07-01] MEDS: LACTATED RINGER'S 1000 ML INJ 1,000 ML IV SCH (07:47)
--- NOTE | 2017-07-01 09:52 | HHI.PR ---
[employer] Note Note Subjective: Patient is doing well this AM. No complaints at this time. Afebrile VSS. She denies CP, SOB, and N/V. Physical Exam: GENERAL: Well-nourished, well-developed patient. SKIN: Warm and dry. CARDIOVASCULAR: Regular rate and rhythm without murmurs, gallops, or rubs. RESPIRATORY: Breath sounds equal bilaterally. No accessory muscle use. FHTs: category 1, 120s baseline, reactive, moderate variability, no decels GASTROINTESTINAL: Abdomen soft, non-tender, nondistended. EXTREMITIES: No cyanosis, or edema. NEUROLOGICAL: Awake, alert, and oriented x 3. Non-focal. Vital Signs Date Time Temp Pulse Resp B/P (MAP) Pulse Ox O2 Delivery O2 Flow Rate FiO2 06/30/17 19:25 82 128/61 (83) 06/30/17 19:24 98.4 18 Laboratory Tests Test 06/30/17 12:45 06/30/17 13:25 Urine Color YELLOW Urine Turbidity CLEAR Urine pH 6.5 Urine Specific [place] 1.032 Urine Protein TRACE mg/dL Urine Glucose (UA) NEG mg/dL Urine Ketones TRACE mg/dL Urine Occult Blood NEG Urine Nitrite NEG Urine Bilirubin NEG Urine Urobilinogen LESS THAN 2.0 MG/DL Urine Leukocyte Esterase TRACE Urine RBC 1 /hpf Urine WBC 4 /hpf Urine Squamous Epithelial Cells <1 /hpf Urine Mucus FEW /lpf Microscopic Urinalysis Comment CULT NOT INDICATED Urine Opiates Screen NEG Urine Barbiturates Screen NEG Urine Amphetamines Screen NEG Urine Benzodiazepines Screen NEG Urine Cocaine Screen NEG Urine Cannabinoids Screen NEG White Blood Count 11.2 TH/MM3 Red Blood Count 3.82 MIL/MM3 Hemoglobin 8.8 GM/DL Hematocrit 27.8 % Mean Corpuscular Volume 72.7 FL Mean Corpuscular Hemoglobin 23.1 PG Mean Corpuscular Hemoglobin Concent 31.7 % Red Cell Distribution Width 17.1 % Platelet Count 382 TH/MM3 Mean Platelet Volume 7.3 FL Neutrophils (%) (Auto) 67.2 % Lymphocytes (%) (Auto) 24.0 % Monocytes (%) (Auto) 6.4 % Eosinophils (%) (Auto) 2.2 % Basophils (%) (Auto) 0.2 % Neutrophils # (Auto) 7.6 TH/MM3 Lymphocytes # (Auto) 2.7 TH/MM3 Monocytes # (Auto) 0.7 TH/MM3 Eosinophils # (Auto) 0.2 TH/MM3 Basophils # (Auto) 0.0 TH/MM3 CBC Comment DIFF FINAL Differential Comment Current Medications Medications (Trade) Dose Ordered Sig/Stephen Route PRN Reason Start Time Stop Time Status Last Admin Dose Admin Lactated Ringer's 1,000 ml @ 125 mls/hr Q8H IV 06/30/17 13:05 07/01/17 07:47 Lactated Ringer's 1,000 ml @ 3,000 mls/hr Q20M PRN IV SEE LABEL COMMENTS 06/30/17 13:05 Sodium Chloride 500 ml @ 1,000 mls/hr ONCE PRN IV SEE LABEL COMMENTS 06/30/17 13:15 07/01/17 13:14 Sodium Chloride 1,000 ml @ 100 mls/hr Q10H PRN IV See Comments 06/30/17 13:25 Lidocaine HCl (Xylocaine 1% Inj (50 ml)) 0.1 ml UNSCH X1 PRN I-DERMAL SEE LABEL COMMENTS 06/30/17 13:15 07/03/17 13:14 Citric Acid/ Sodium Citrate (Bicitra Liq) 30 ml LEAD TRAINER PO 06/30/17 13:15 07/04/17 13:14 Ondansetron HCl (Zofran Inj) 4 mg Q6H PRN IV PUSH NAUSEA 06/30/17 13:15 Fentanyl Citrate (fentaNYL INJ) 50 mcg Q1H PRN IV PUSH PAIN SCALE 3 TO 5 06/30/17 13:15 Fentanyl Citrate (fentaNYL INJ) 100 mcg Q1H PRN IV PUSH PAIN SCALE 6 TO 10 06/30/17 13:15 06/30/17 22:31 Oxytocin 500 ml @ 999 mls/hr ONCE ONCE IV 06/30/17 13:15 06/30/17 13:45 DC Lidocaine HCl (Xylocaine 1% Inj (50 ml)) 10 ml UNSCH X1 PRN INFIL SEE LABEL COMMENTS 06/30/17 13:15 07/02/17 13:14 Mineral Oil (Muri-Lube Oil) 10 ml UNSCH PRN TOPICAL SEE LABEL COMMENTS 06/30/17 13:15 Lactated Ringer's 1,000 ml @ 999 mls/hr BOLUS ONCE IV 06/30/17 13:15 06/30/17 14:15 DC Betamethasone Acet/Betameth SodPhos (Celestone Soluspan Inj) 12 mg Q24H IM 06/30/17 14:00 07/01/17 14:01 06/30/17 14:16 Influenza Virus Vaccine (Flu (Quadrivalent) Vaccine Inj) 0.5 ml ONCE ONCE IM 07/01/17 10:00 07/01/17 10:01 Terbutaline Sulfate (Brethine Inj) 0.25 mg ONCE PRN SQ SEE LABEL COMMENTS 06/30/17 22:30 07/01/17 22:29 06/30/17 22:31 A/P: 22-year-old at 35/1 weeks gestation with history of delivery at 27 weeks presented with labor #1 IUP Category 1 tracing, reassuring Continuous monitoring while on labor and delivery #2 GBS negative #3 cervical dilation with infrequent contractions -s/p terbutaline and fentanyl - No cervical change since admission - Betamethasone 12 mg IM daily 2, will be discharge today after receiving 2nd dose at 14:00 - Routine labor care Opal De La Cruz MD R1 Jul 01, 2017 09:52
[2017-07-01] MEDS ORDERED: INFLUENZA VIRUS VACCINE (QUADRIVALENT) 0.5 ML SYR IM ONE (10:00)
[2017-07-01 11:54] VITALS: BP 111/59; PULSE 90; RESP 18; TEMP 98.5
[2017-07-01] MEDS ORDERED: ACETAMINOPHEN 325 MG TAB PO PRN (14:00)
[2017-07-01] MEDS: BETAMETHASONE SOD PHOS/ACETATE SUSP 30 MG/5 ML VIAL IM SCH (14:26)
--- NOTE | 2017-07-01 14:35 | HHI.DCPOC ---
Discharge Care Plan Diagnosis: (1) labor Report Symptoms to Your Doctor -Temperature above 100.5 degrees -Redness, of incision or excessive or foul smelling drainage -Unusual pain or calf pain -Increased vaginal bleeding -Painful or difficulty urinating -Feelings of extreme sadness or anxiety after 2 weeks Goals to Promote Your Health * To prevent worsening of your condition and complications * To maintain your health at the optimal level Directions to Meet Your Goals Take your medications as prescribed Follow your dietary instruction Follow activity as directed Ensure plenty of rest for recovery Drink fluids for hydration Keep your appointments as scheduled Take your immunizations and boosters as scheduled If your symptoms worsen call your PCP, if no PCP go to Urgent Care Center or Emergency Room Smoking is Dangerous to Your Health. Avoid second hand smoke Call the 24-hour crisis hotline for domestic abuse at Opal De La Cruz MD R1 Jul 01, 2017 14:35
== END 2017-07-01 14:50 | disposition home or self-care (01) ==
LOC: HOBED 11:58 → H2EA 13:16
PROVIDERS: ADMIT Obstetrics & Gynecology Obstetrics; ATTEND Obstetrics & Gynecology Obstetrics
DX: O60.03 Preterm labor without delivery, third trimester (principal); O09.213 Supervision of pregnancy with history of pre-term labor, third trimester; Z3A.35 35 weeks gestation of pregnancy; Z23 Encounter for immunization; Z91.19 Patient's noncompliance with other medical treatment and regimen
CPT/HCPCS: 59025; 80307; 81001; 85025; 90471; 90686; 96361; 96372; 96374; 99285; G0378; J0702; J3010; J3105; J7120; G0008; Q2038

== ENCOUNTER 2017-07-02 22:06 | Emergency (ER) | payer OTHER ==
[2017-07-02] VITALS (19 sets, daily range): PULSE 68–87; RESP 18; TEMP 98
[2017-07-02] MEDS ORDERED: LACTATED RINGER'S 1000 ML INJ 1,000 ML IV SCH (22:50)
--- NOTE | 2017-07-02 22:58 | PD ---
HPI Chief Complaint Contractions, back pain, mild chest pain Date Seen: Jul 02, 2017 Time Seen: 20:50 Travel History International Travel<30 Days: No Contact w/Intl Traveler<30Days: No Known Affected Area: No History of Present Illness HPI Patient is 22-year-old black female 35 weeks scheduled care for women clinic and presents with continued contractions, patient's had the contractions now for over a week and was admitted here for same problem hydrated and given steroids IM, the contractions decreased with some terbutaline during that admission and she was sent home she's returning tonight with continued contraction pain some back pain and mild chest pain. Denies leakage or bleeding. Baby is active. heart rate tracing has good variability but contractions seen her spaced out 10 minutes or more part. And when she has a contraction she does have a late deceleration component with that and even in the face of such excellent variability Weeks Gestation: 35 Para: 2 : 3 History Obstetric History Obstetric History 1 term delivery 1 delivery Social History Alcohol Use: No Tobacco Use: No Substance Abuse: No Allergies-Medications (Allergen,Severity, Reaction): Coded Allergies: No Known Allergies (Verified , 05/31/17) Home Meds Active Scripts Vit W/ Ferrous Fumara ( Vitamins Plus Lo 27-1 mg) 1 Tab Tab, 1 TAB PO AC LUNCH, #30 BOTTLE 11 Refills Prov:Shanta Phan [facility] 02/16/17 Ferrous Sulfate (Feosol) 200 Mg Tab, 200 MG PO DAILY for Nutritional Supplement , #30 TAB 2 Refills Prov:Janay Oh CNM [facility] 02/15/17 Review of Systems General / Constitutional: No: Fever, Weight Gain, Chills, Other Eyes: No: Diploplia, Blurred Vision, Visual changes, Pain, Photophobia HENT: No: Headaches, Vertigo, Lightheadedness Cardiovascular: Chest Pain or Discomfort, No: Irregular Rhythm, Palpitations, Tachycardia, Syncope, Varicosities, Edema, Cyanosis Respiratory: No: Cough, Short of Breath, Other Gastrointestinal: Abdominal Pain, No: Nausea, Vomiting, Diarrhea Genitourinary: No: Decreased Urinary Output, Oliguria Musculoskeletal: No: Limited ROM, Weakness, Cramping, Edema, Pain Skin: No Rash, No Itching, No Dryness, No Lumps, No Change in Pigmentation, No Change in Nails, No Alopecia, No Lesions Neurologic: No: Weakness, Dizziness, Syncope, Focal Abnormalities, Coordination Problem, Headache, Slurred Speech, Seizures Psychiatric: No: Depression, Suicidal Ideations, Homicidal Ideation Endocrine: No: Heat Intolerance, Cold Intolerance, Polydipsia, Polyuria, Other Physical Exam Narrative GENERAL: Well-nourished, well-developed patient. SKIN: Warm and dry. HEAD: Normocephalic and atraumatic. EYES: No scleral icterus. No injection or drainage. ENT: No nasal drainage noted. Mucous membranes pink. Airway patent. NECK: Supple, trachea midline. No JVD. CARDIOVASCULAR: Regular rate and rhythm without murmurs, gallops, or rubs. RESPIRATORY: Breath sounds equal bilaterally. No accessory muscle use. BREASTS: Bilateral exam showed no masses , no retractions, no nipple discharge. ABDOMEN/GI: Abdomen soft, non-tender, bowel sounds present, no rebound, no guarding Gravid to [35-] weeks size Fundal Height: [35-] GENITOURINARY: External Genitalia: intact and normal in appearance BUS glands: [-] Cervix: [No change-] Dilatation: [4-5-] Effacement: [50-] Station: [-3] Presentation: [vtx-] Membranes: [intact ] Uterine Contractions: [Every 10-12 minutes-] FHT's: Category: [1-] Baseline: [133-] Variability: [-mod] EXTREMITIES: No cyanosis or edema. BACK: Nontender without obvious deformity. No CVA tenderness. NEUROLOGICAL: Awake and alert. Motor and sensory grossly within normal limits. Five out of 5 muscle strength in all muscle groups. Normal speech. Data Data Orders Orders Vital Signs (Adult) .ON ADMISSION (07/02/17 22:50) ^ Labor Status (07/02/17 22:50) Urinalysis - C+S If Indicated (07/02/17 22:50) Lactated Ringer's 1000 Ml Inj (Lr 1000 M (07/02/17 22:50) Meperidine Inj (Demerol Inj) (07/02/17 23:00) Prochlorperazine Inj (Compazine Inj) (07/02/17 23:00) MDM Interpretation(s) History this 22-year-old black female 35 weeks with recurrent bout of contractions no bleeding or leaking cervix is unchanged from previous exams still 4-5 cm 50% -3, she was patricia somewhat initially these stopped with IV hydration, her heart rate tracing became reactive with moderate variability Plan Plan to discharge patient home to bedrest increase oral fluids, Tylenol as needed, heating pad or hot bath subdermally, and try and see her OB provider next week for repeat NST Diagnosis Diagnosis: Primary Impression: Threatened premature labor affecting , less than 37 weeks, antepartum Disposition: 01 DISCHARGE HOME Condition: Stable Kumar Camacho II, MD Jul 02, 2017 22:58
[2017-07-02] MEDS ORDERED: PROCHLORPERAZINE INJ 10 MG/2 ML VIAL IV PUSH ONE (23:00)
[2017-07-02] MEDS ORDERED: MEPERIDINE HCL 50 MG/ML VIAL IV PUSH ONE (23:00)
[2017-07-02] MEDS ORDERED: CALCIUM CARBONATE 500 MG CHEWABLE TAB PO ONE (23:30)
[2017-07-02 23:36] LABS: BACTERIA, URINE RARE /hpf; BILIRUBIN, URINE NEG (NEG); BLOOD, URINE NEG (NEG); GLUCOSE,URINE 70 mg/dL (NEG); KETONE, URINE NEG (NEG); MUCUS URINE FEW /lpf (OCC); NITRITE,URINE NEG (NEG); SQUAMOUS EPITHELIAL CELL URINE 1 /hpf (0-5); URINE COLOR LIGHT-YELLOW (YELLW/STRAW); URINE LEUKOCYTE ESTERASE NEG (NEG)
[2017-07-03] VITALS: RESP 18
== END 2017-07-03 00:29 | disposition home or self-care (01) ==
LOC: HOBED 22:06
DX: O47.03 False labor before 37 completed weeks of gestation, third trimester (principal); Z3A.35 35 weeks gestation of pregnancy; Z79.899 Other long term (current) drug therapy
CPT/HCPCS: 59025; 81001; 96374; 96375; 99284; J0780; J2175; J7120

== ENCOUNTER 2017-07-20 17:28 | Emergency (ER) | payer OTHER ==
--- NOTE | 2017-07-20 19:32 | PD ---
HPI Chief Complaint Low back pain Travel History International Travel<30 Days: No Contact w/Intl Traveler<30Days: No Known Affected Area: No History of Present Illness HPI 22-year-old 002, IUP at 38 weeks care complicated by late entry to care, anemia Patient presents complaining of some white and brownish colored discharge today with wiping. She denies any vaginal bleeding. She denies any associated otorrhea. She denies any recent intercourse. She also reports some lower back pain that is constant in nature without aggravating or alleviating factors. She denies any attempted treatments. She denies any leaking of fluid rate she reports normal, good, and consistent movement. She reports only irregular contractions. She has no other complaints tonight. Weeks Gestation: 38 Para: 2 : 3 History Past Medical History Medical History: Denies Significant Hx Obstetric History Obstetric History 002, 2 full-term vaginal deliveries Past Surgical History Narrative Surgical Left ovarian cystectomy Family History Family History: Negative Social History Alcohol Use: No Tobacco Use: No Substance Abuse: No Allergies-Medications (Allergen,Severity, Reaction): Coded Allergies: No Known Allergies (Verified Adverse Reaction, Unknown, 07/05/17) Home Meds Active Scripts Vit W/ Ferrous Fumara ( Vitamins Plus Lo 27-1 mg) 1 Tab Tab, 1 TAB PO AC LUNCH, #30 BOTTLE 11 Refills Prov:Shanta Phan [facility] 02/16/17 Ferrous Sulfate (Feosol) 200 Mg Tab, 200 MG PO DAILY for Nutritional Supplement , #30 TAB 2 Refills Prov:Janay Oh CNM [facility] 02/15/17 Review of Systems Except as stated in HPI: all other systems reviewed are Neg Physical Exam Narrative GENERAL: Well-nourished, well-developed patient. SKIN: Warm and dry. HEAD: Normocephalic and atraumatic. EYES: No scleral icterus. No injection or drainage. ENT: No nasal drainage noted. Mucous membranes pink. Airway patent. NECK: Supple, trachea midline. No JVD. CARDIOVASCULAR: Regular rate and rhythm without murmurs, gallops, or rubs. RESPIRATORY: Breath sounds equal bilaterally. No accessory muscle use. BREASTS: Deferred. ABDOMEN/GI: Abdomen soft, non-tender, bowel sounds present, no rebound, no guarding Gravid GENITOURINARY: External Genitalia: intact and normal in appearance, normal BUS. Speculum examination was performed which revealed physiologic appearing, whitish discharge. No evidence of vaginal bleeding or recent vaginal bleeding was noted. Grossly normal rugae. No cervical or vaginal masses were appreciated. SVE 3-4/70/-3 and posterior. Repeat vaginal exam was performed greater than 1 hour with no cervical change noted. FHT's: heart rate baseline was noted to be in the 140s with moderate long- term variability, good accelerations, no decelerations were noted. The NST is reactive and FHR is reassuring and appropriate for gestational age. EXTREMITIES: No cyanosis or edema. BACK: Nontender without obvious deformity. No CVA tenderness. NEUROLOGICAL: Awake and alert. Motor and sensory grossly within normal limits. Five out of 5 muscle strength in all muscle groups. Normal speech. Psychiatric: Grossly normal memory and affect Musculoskeletal: Grossly normal range of motion, gait, muscle strength Data Data Orders Orders Vital Signs (Adult) .ON ADMISSION (07/20/17 19:27) ^ Labor Status (07/20/17 19:27) ^ Hydration (07/20/17 19:27) Hydroxyzine Pamoate (Vistaril) (07/20/17 19:30) MDM Plan Assessment/plan: 1. IUP at 38 weeks 2. Late care 3. Anemia 4. Lower back pain: Appears to be musculoskeletal in nature, recommend comfort treatment and measures with Tylenol and warm compresses needed 5. No evidence of active labor at this time, strict labor precautions are given 6. well-being: Reassuring testing with reactive NST, FHR reassuring and appropriate for gestational age. kick counts daily 7. Follow up with primary OB in 2-3 days or sooner if needed Diagnosis Diagnosis: Primary Impression: 38 weeks gestation of Additional Impression: False labor after 37 completed weeks of gestation Disposition: 01 DISCHARGE HOME Condition: Good Patient Instructions: General Instructions, Having Your Baby: The Labor Process (GEN), Movement (ED), Abdominal Pain in (ED) Additional Instructions: come back if strong contractions 3-5 min. apart, each lasting one minute, not able to walk or talk through them. also if water breaks, bleeding or significant decrease in baby movement, frequent headaches that do not respond to tylenol, visdion problems, significant swelling Departure Forms: Tests/Procedures Shanta Minor MD Jul 20, 2017 19:32
== END 2017-07-20 20:08 | disposition home or self-care (01) ==
LOC: HOBED 17:28
DX: O47.1 False labor at or after 37 completed weeks of gestation (principal); O99.013 Anemia complicating pregnancy, third trimester; Z3A.38 38 weeks gestation of pregnancy
CPT/HCPCS: 59025; 76815

== ENCOUNTER 2017-07-27 03:03 | Inpatient (IN) | payer OTHER ==
[~2017-07-27] VITALS: Ht 170.2 cm; Wt 96.0 kg
[2017-07-27] VITALS (8 sets, daily range): BP systolic 118–144; BP diastolic 69–85; PULSE 59–85; RESP 16–20; TEMP 98.1–98.5
[2017-07-27] MEDS ORDERED: BENZOCAINE 20% TOPICAL SPRAY 60 ML CAN TOPICAL PRN (03:30)
[2017-07-27] MEDS ORDERED: ACETAMINOPHEN 325 MG TAB PO PRN (03:30)
[2017-07-27] MEDS ORDERED: ALUMINUM/MAGNESIUM/SIMETH 30 ML CUP PO PRN (03:30)
[2017-07-27] MEDS ORDERED: WITCH HAZEL 50%/GLYCERIN 12.5% 40 PAD JAR TOPICAL PRN (03:30)
[2017-07-27] MEDS ORDERED: SODIUM CHLORIDE 0.9% FLUSH 10 ML FLUSH IV FLUSH PRN (03:30)
[2017-07-27] MEDS ORDERED: ONDANSETRON ODT 4 MG TAB PO PRN (03:30)
[2017-07-27] MEDS ORDERED: DOCUSATE SODIUM 50 MG/SENNA 8.6 MG TAB PO PRN (03:30)
[2017-07-27] MEDS ORDERED: ZOLPIDEM TARTRATE 5 MG TAB PO PRN (03:30)
[2017-07-27] MEDS ORDERED: OXYTOCIN 30 UNITS-500ML PREMIX 500 ML IV SCH (03:30)
[2017-07-27] MEDS ORDERED: OXYTOCIN 10 UNIT/ML AMP ONE (03:32)
--- NOTE | 2017-07-27 03:32 | HHI.HP ---
HPI Chief Complaint Contractions, precipitous delivery Date Seen: Jul 27, 2017 Time Seen: 03:24 Travel History International Travel<30 Days: No Contact w/Intl Traveler<30Days: No Known Affected Area: No History of Present Illness HPI Patient's a 22-year-old black female term presents precipitous labor with delivery at the nurse's station[in front of [facility]] patient brought in by EMT. Weeks Gestation: 39 Para: 2 : 3 History Obstetric History Obstetric History 2 vaginal deliveries Social History Alcohol Use: No Tobacco Use: No Substance Abuse: No Allergies-Medications (Allergen,Severity, Reaction): Coded Allergies: No Known Allergies (Verified Adverse Reaction, Unknown, 07/05/17) Home Meds Active Scripts Vit W/ Ferrous Fumara ( Vitamins Plus Lo 27-1 mg) 1 Tab Tab, 1 TAB PO AC LUNCH, #30 BOTTLE 11 Refills Prov:Shanta Phan [facility] 02/16/17 Ferrous Sulfate (Feosol) 200 Mg Tab, 200 MG PO DAILY for Nutritional Supplement , #30 TAB 2 Refills Prov:Janay Oh CNM [facility] 02/15/17 Review of Systems General / Constitutional: No: Fever, Weight Gain, Chills, Other Eyes: No: Diploplia, Blurred Vision, Visual changes, Pain, Photophobia HENT: No: Headaches, Vertigo, Lightheadedness Cardiovascular: No: Irregular Rhythm, Chest Pain or Discomfort, Palpitations, Tachycardia, Syncope, Varicosities, Edema, Cyanosis Respiratory: No: Cough, Short of Breath, Other Gastrointestinal: Abdominal Pain, No: Nausea, Vomiting, Diarrhea Genitourinary: No: Decreased Urinary Output, Oliguria Musculoskeletal: No: Limited ROM, Weakness, Cramping, Edema, Pain Skin: No Rash, No Itching, No Dryness, No Lumps, No Change in Pigmentation, No Change in Nails, No Alopecia, No Lesions Neurologic: No: Weakness, Dizziness, Syncope, Focal Abnormalities, Coordination Problem, Headache, Slurred Speech, Seizures Psychiatric: No: Depression, Suicidal Ideations, Homicidal Ideation Endocrine: No: Heat Intolerance, Cold Intolerance, Polydipsia, Polyuria, Other Physical Exam Narrative GENERAL: Well-nourished, well-developed patient. SKIN: Warm and dry. HEAD: Normocephalic and atraumatic. EYES: No scleral icterus. No injection or drainage. ENT: No nasal drainage noted. Mucous membranes pink. Airway patent. NECK: Supple, trachea midline. No JVD. CARDIOVASCULAR: Regular rate and rhythm without murmurs, gallops, or rubs. RESPIRATORY: Breath sounds equal bilaterally. No accessory muscle use. BREASTS: Bilateral exam showed no masses , no retractions, no nipple discharge. ABDOMEN/GI: Abdomen soft, non-tender, bowel sounds present, no rebound, no guarding Gravid to [39-] weeks size Fundal Height: [-39] GENITOURINARY: External Genitalia: intact and normal in appearance vagina and cx normal condition, uterus at umbilicus and firm EXTREMITIES: No cyanosis or edema. BACK: Nontender without obvious deformity. No CVA tenderness. NEUROLOGICAL: Awake and alert. Motor and sensory grossly within normal limits. Five out of 5 muscle strength in all muscle groups. Normal speech. Caprini VTE Risk Assessment Caprini VTE Risk Assessment: No/Low Risk (score <= 1) Caprini Risk Assessment Model Point Value = 1 Point Value = 2 Point Value = 3 Point Value = 5 Age 41-60 Minor surgery BMI > 25 kg/m2 Swollen legs Varicose veins or History of unexplained or recurrent spontaneous Oral contraceptives or hormone replacement Sepsis (< 1 month) Serious lung disease, including pneumonia (< 1 month) Abnormal pulmonary function Acute myocardial infarction Congestive heart failure (< 1 month) History of inflammatory bowel disease Medical patient at bed rest Age 61-74 Arthroscopic surgery Major open surgery (> 45 min) Laparoscopic surgery (> 45 min) Malignancy Confined to bed (> 72 hours) Immobilizing plaster cast Central venous access Age >= 75 History of VTE Family history of VTE Factor V Leiden Prothrombin [id number] Lupus anticoagulant Anticardiolipin antibodies Elevated serum homocysteine Heparin-induced thrombocytopenia Other congenital or acquired thrombophilia Stroke (< 1 month) Elective arthroplasty Hip, pelvis, or leg fracture Acute spinal cord injury (< 1 month) Prophylaxis Regimen Total Risk Factor Score Risk Level Prophylaxis Regimen 0-1 Low Early ambulation 2 Moderate Order ONE of the following: *Sequential Compression Device (SCD) *Heparin 5000 units SQ BID 3-4 Higher Order ONE of the following medications: *Heparin 5000 units SQ TID *Enoxaparin/Lovenox 40 mg SQ daily (WT < 150 kg, CrCl > 30 mL/min) *Enoxaparin/Lovenox 30 mg SQ daily (WT < 150 kg, CrCl > 10-29 mL/min) *Enoxaparin/Lovenox 30 mg SQ BID (WT < 150 kg, CrCl > 30 mL/min) AND/OR *Sequential Compression Device (SCD) 5 or more Highest Order ONE of the following medications: *Heparin 5000 units SQ TID (Preferred with Epidurals) *Enoxaparin/Lovenox 40 mg SQ daily (WT < 150 kg, CrCl > 30 mL/min) *Enoxaparin/Lovenox 30 mg SQ daily (WT < 150 kg, CrCl > 10-29 mL/min) *Enoxaparin/Lovenox 30 mg SQ BID (WT < 150 kg, CrCl > 30 mL/min) AND *Sequential Compression Device (SCD) Data Data Orders Orders Ob (2e) Additional Admit Info (07/27/17 03:13) Admit To Inpatient (07/27/17 ) Vital Signs (Adult) .QSHIFT (07/27/17 03:22) Activity Oob Ad Ramona (07/27/17 03:22) Ice / Cold Pack PRN (07/27/17 03:22) Discontinue Iv (07/27/17 03:22) Sitz Bath PRN (07/27/17 03:22) ^ Massage (07/27/17 03:22) ^ Rhogam (07/27/17 03:22) Urinary Catheter Management .PRN (07/27/17 03:22) Diet Regular Basic (07/27/17 Breakfast) Sodium Chloride 0.9% Flush (Ns Flush) (07/27/17 09:00) Sodium Chloride 0.9% Flush (Ns Flush) (07/27/17 03:30) Oxytocin 30 Units-500ml Premix (Pitocin (07/27/17 03:30) Acetaminophen (Tylenol) (07/27/17 03:30) Ibuprofen (Motrin) (07/27/17 03:30) Oxycodone-Acetamin 5-325 Mg (Percocet (07/27/17 03:30) Benzocaine 20% Top Spr (Americaine 20% T (07/27/17 03:30) Witch Nadira-Glycerin Pad (Tucks Pads) (07/27/17 03:30) Docusate Sodium-Senna (Elvie-Colace) (07/27/17 03:30) Zolpidem (Ambien) (07/27/17 03:30) Lriaima-Hbzpg-Vqbnfqz Inj (M-M-R Ii Inj) (07/27/17 16:00) Neqj-Cae-Qljhsv (Booster) Inj (Boostrix (07/27/17 16:00) Al-Mag Hy-Si 40-40-4 Mg/Ml Liq (Mag-Al P (07/27/17 03:30) Ondansetron Odt (Zofran Odt) (07/27/17 03:30) Assessment/Plan Assessment and Plan 22-year-old black female 39 weeks presented precipitous labor and delivered in front of the nurse's station here on labor and delivery in the ravi ., placenta was delivered by me in the room without complication came complete and intact, baby doing well in the room attended by the nursery staff. There was no perineal laceration or vaginal injury Impression--precipitous delivery of a full-term by multiparous patient Plan is course Kumar Camacho II, MD Jul 27, 2017 03:32
--- NOTE | 2017-07-27 03:39 | PD.OB.DELI ---
Weeks gestation: 39 Gest age assessed date: Jul 27, 2017 Gest age assessed time: 03:00 Pt started active labor?: Yes Active labor start date: Jul 27, 2017 Active labor start time: 02:00 Medical induction of labor?: No Artificial rupture of membrane: No Anesthesia: None Episiotomy: None Vaginal Delivery: Precipitous Presentation: Vertex Nuchal Cord: None Delayed cord clamping (45 sec): No Infant: Female Delivery date: Jul 27, 2017 Delivery time: 03:08 One Minute : 9 Five Minute : 9 Weight: 3230 gm Placenta: Spontaneous delivery, Intact Laceration: No lacerations Estimated blood loss: 100 cc Additional Information Precipitous labor and delivery, with actual delivery occurring in the ravi in front of the nurse's station here on L&D Kumar Camacho II, MD Jul 27, 2017 03:39
[2017-07-27] MEDS: oxyCODONE/ACETAMINOPHEN 5 MG/325 MG TAB PO PRN ×2 (04:04→22:58)
[2017-07-27] MEDS: IBUPROFEN 800 MG TAB PO PRN ×3 (04:05→20:03)
[2017-07-27] MEDS ORDERED: SODIUM CHLORIDE 0.9% FLUSH 10 ML FLUSH IV FLUSH SCH (09:00)
--- NOTE | 2017-07-27 09:40 | HHI.OB ---
Subjective Post Day: 0 Remarks Patient is a 22-year-old delivered at 39 weeks and 0 days. Patient is day 0 after precipitous NVD. Patient's pain is well-controlled. Patient reports eating and drinking without any nausea or vomiting. Patient reports minimal bleeding. Patient has not passed gas or bowel movements. Patient is walking without lower extremity pain or shortness of breath. Patient reports desire for contraception and both formula- and breast-feeding. Objective Vitals/I&O Vital Signs Date Time Temp Pulse Resp B/P (MAP) Pulse Ox O2 Delivery O2 Flow Rate FiO2 07/27/17 05:45 98.1 59 16 135/80 (98) 07/27/17 04:25 85 136/85 (102) 07/27/17 04:24 18 07/27/17 04:02 76 119/73 (88) 07/27/17 04:01 20 07/27/17 03:47 20 07/27/17 03:46 78 144/84 (104) Objective Remarks GENERAL: Well-nourished, well-developed patient. CARDIOVASCULAR: Regular rate and rhythm without murmurs, gallops, or rubs. RESPIRATORY: Breath sounds equal bilaterally. No accessory muscle use. ABDOMEN/GI: Abdomen soft, non-tender. Fundus: Firm, non-tender at umbilicus. GENITOURINARY: Light to moderate bleeding. EXTREMITIES: No cyanosis or edema, non-tender, without signs of DVT. Medications and IVs Current Medications Medications (Trade) Dose Ordered Sig/Stephen Route Start Time Stop Time Status Last Admin (NS Flush) 2 ml BID IV FLUSH 07/27/17 09:00 (NS Flush) 2 ml UNSCH PRN IV FLUSH 07/27/17 03:30 (Tylenol) 650 mg Q4H PRN PO 07/27/17 03:30 (Motrin) 800 mg Q8H PRN PO 07/27/17 03:30 07/27/17 04:05 (Percocet 5-325 Mg) 1 tab Q4H PRN PO 07/27/17 03:30 07/27/17 04:04 (Americaine 20% Top Spr) 1 spray Q4H PRN TOPICAL 07/27/17 03:30 (Tucks Pads) 1 applic QID PRN TOPICAL 07/27/17 03:30 (Elvie-Colace) 2 tab Q12H PRN PO 07/27/17 03:30 (Ambien) 5 mg HS PRN PO 07/27/17 03:30 (M-M-R Ii Inj) 0.5 ml ONCE ONCE SQ 07/27/17 16:00 07/27/17 16:01 (Boostrix Inj) 0.5 ml ONCE ONCE IM 07/27/17 16:00 07/27/17 16:01 (Mag-Al Plus Susp Liq) 15 ml Q8H PRN PO 07/27/17 03:30 (Zofran Odt) 4 mg Q6H PRN PO 07/27/17 03:30 Assessment/Plan Problem List: (1) NVD (normal vaginal delivery) ICD Codes: O80 - Encounter for full-term uncomplicated delivery Assessment and Plan Patient is a 22-year-old delivered at 39 weeks and 0 days. Patient is day 0 after precipitous NVD. Patient was counseled to do 6 weeks of pelvic rest. Patient was counseled to follow up in 6 weeks. Patient requested follow-up and contraception. --AF VSS --Continue routine care --Motrin and Percocet when necessary for pain --Encourage OOB --Pelvic rest for 6 weeks will need follow-up appointment at that time. --Contraception: Depo-Provera --Anticipate discharge tomorrow or the next day d/w Dr. Camacho Discharge Planning Anticipate discharge tomorrow or the next day. Demarcus Lopez MD R2 Jul 27, 2017 09:40
[2017-07-27] MEDS ORDERED: medroxyPROGESTERone ACETATE SUSP 150 MG/ML SYRINGE IM ONE (12:00)
[2017-07-27] MEDS ORDERED: DIPHTH/TETANUS/ACEL PERTUSSIS (BOOSTER) 0.5 ML VIAL/PFS IM ONE (16:00)
[2017-07-27] MEDS ORDERED: MEASLES, MUMPS, RUBELLA VACCINE 0.5 ML VIAL SQ ONE (16:00)
--- NOTE | 2017-07-28 09:42 | HHI.OB ---
Subjective Post Day: 1 Remarks Patient is a 22-year-old delivered at 39 weeks and 0 days. Patient is day 1 after precipitous NVD. Patient's pain is well-controlled. Patient reports eating and drinking without any nausea or vomiting. Patient reports minimal bleeding. Patient has not passed gas or bowel movements. Patient is walking without lower extremity pain or shortness of breath. Patient reports desire for contraception and breast- and bottle-feeding. Objective Vitals/I&O Vital Signs Date Time Temp Pulse Resp B/P (MAP) Pulse Ox O2 Delivery O2 Flow Rate FiO2 07/27/17 13:00 98.5 68 16 118/69 (85) Objective Remarks GENERAL: Well-nourished, well-developed patient. CARDIOVASCULAR: Regular rate and rhythm without murmurs, gallops, or rubs. RESPIRATORY: Breath sounds equal bilaterally. No accessory muscle use. ABDOMEN/GI: Abdomen soft, non-tender. +BS Fundus: Firm, non-tender at umbilicus. GENITOURINARY: Light to moderate bleeding. EXTREMITIES: No cyanosis or edema, non-tender, without signs of DVT. Medications and IVs Current Medications Medications (Trade) Dose Ordered Sig/Stephen Route Start Time Stop Time Status Last Admin (NS Flush) 2 ml BID IV FLUSH 07/27/17 09:00 (NS Flush) 2 ml UNSCH PRN IV FLUSH 07/27/17 03:30 (Tylenol) 650 mg Q4H PRN PO 07/27/17 03:30 (Motrin) 800 mg Q8H PRN PO 07/27/17 03:30 07/27/17 20:03 (Percocet 5-325 Mg) 1 tab Q4H PRN PO 07/27/17 03:30 07/27/17 22:58 (Americaine 20% Top Spr) 1 spray Q4H PRN TOPICAL 07/27/17 03:30 (Tucks Pads) 1 applic QID PRN TOPICAL 07/27/17 03:30 (Elvie-Colace) 2 tab Q12H PRN PO 07/27/17 03:30 (Ambien) 5 mg HS PRN PO 07/27/17 03:30 (Mag-Al Plus Susp Liq) 15 ml Q8H PRN PO 07/27/17 03:30 (Zofran Odt) 4 mg Q6H PRN PO 07/27/17 03:30 Assessment/Plan Problem List: (1) NVD (normal vaginal delivery) ICD Codes: O80 - Encounter for full-term uncomplicated delivery Assessment and Plan Patient is a 22-year-old delivered at 39 weeks and 0 days. Patient is day 1 after precipitous NVD. Patient was counseled to do 6 weeks of pelvic rest. Patient was counseled to follow up in 6 weeks. Patient requested follow-up and contraception. --AF VSS --Continue routine care --Motrin and Percocet when necessary for pain --Encourage OOB --Pelvic rest for 6 weeks will need follow-up appointment at that time. --Contraception: Depo-Provera --Anticipate discharge tomorrow s/d/w Dr. Wells and Dr. Minor Discharge Planning Anticipate discharge tomorrow Demarcus Lopez MD R2 Jul 28, 2017 09:42
[2017-07-28] MEDS ORDERED: IBUP1TAB7 PO (10:32)
[2017-07-28] MEDS ORDERED: ACET325T15 PO (10:32)
--- NOTE | 2017-07-28 10:33 | HHI.DCPOC ---
Discharge Care Plan Diagnosis: (1) NVD (normal vaginal delivery) Report Symptoms to Your Doctor -Temperature above 100.5 degrees -Redness, of incision or excessive or foul smelling drainage -Unusual pain or calf pain -Increased vaginal bleeding -Painful or difficulty urinating -Feelings of extreme sadness or anxiety after 2 weeks Goals to Promote Your Health * To prevent worsening of your condition and complications, please follow-up with your doctor within 6 weeks. * To maintain your health at the optimal level, please follow medical recommendations. Directions to Meet Your Goals Take your medications as prescribed Follow your dietary instruction Follow activity as directed Ensure plenty of rest for recovery Drink fluids for hydration Keep your appointments as scheduled Take your immunizations and boosters as scheduled If your symptoms worsen call your PCP, if no PCP go to Urgent Care Center or Emergency Room Smoking is Dangerous to Your Health. Avoid second hand smoke Call the 24-hour crisis hotline for domestic abuse at Demarcus Lopez MD R2 Jul 28, 2017 10:33
[2017-07-28] MEDS: IBUPROFEN 800 MG TAB PO PRN (11:41)
[2017-07-28] MEDS: oxyCODONE/ACETAMINOPHEN 5 MG/325 MG TAB PO PRN (11:42)
== END 2017-07-28 14:45 | disposition home or self-care (01) | DRG 775 ==
LOC: HOBED 03:03 → H2EB 03:15 → H1EA 05:18
PROVIDERS: ADMIT Obstetrics & Gynecology Maternal & Fetal Medicine; ATTEND Obstetrics & Gynecology Maternal & Fetal Medicine
PROC: 10E0XZZ Delivery of Products of Conception, External Approach (ICD-10-PCS; principal; 2017-07-27)
DX: O62.3 Precipitate labor (principal); Z37.0 Single live birth; Z3A.39 39 weeks gestation of pregnancy
CPT/HCPCS: 90715; J1050; J2590

== ENCOUNTER 2017-09-24 17:42 | Emergency (ER) | payer OTHER ==
[~2017-09-24] VITALS: Ht 170.2 cm; Wt 68.0 kg
[~2017-09-24 17:42] MED LIST changes: +ACET325T15 PO; +IBUP1TAB7 PO
[2017-09-24 17:43] VITALS: BP 143/88; PULSE 80; RESP 12; TEMP 98; O2SAT 98
[2017-09-24] MEDS ORDERED: AMOXICILLIN/CLAVULANATE K 875 MG TAB PO ONE (18:00)
[2017-09-24] MEDS ORDERED: IBUPROFEN 600 MG TAB PO ONE (18:00)
[2017-09-24] MEDS ORDERED: RABIES IMMUNE GLOBULIN INJ 1,500 UNITS/10 ML VIAL IM ONE (18:00)
[2017-09-24] MEDS ORDERED: RABIES VACCINE CHICK EMB INJ 2.5 UNITS/ML SYR IM ONE (18:00)
[2017-09-24] MEDS ORDERED: AUGM875T3 PO (18:13)
--- NOTE | 2017-09-24 18:13 | PD ---
HPI Chief Complaint: Bite or Sting Time Seen by Provider: 17:53 Travel History International Travel<30 days: No Contact w/Intl Traveler<30days: No Traveled to known affect area: No History of Present Illness HPI 22-year-old female here for evaluation after a dog bite that occurred about 15 minutes prior to arrival. The patient states that she was walking outside her home in her neighborhood when a random dog not wearing a collar came up to her and bit her in her right thigh. This was unprovoked. She believes the dog to be a pit bull. She does not know the environmental remediation engineer of the dog. She denies any other injuries. Pain is moderate, constant, worse with palpation. She believes her tetanus is up-to-date. PFSH Past Medical History Diminished Hearing: No Immunizations Current: Yes ?: Not LMP: 09/24/16 Menopausal: No : 3 Para: 2 Ovarian Cysts: Yes (removed) Past Surgical History Gynecologic Surgery: Yes (DENDRITE ON OVARY REMOVED) Other Surgery: No Social History Alcohol Use: No Tobacco Use: No Substance Use: Yes (MJ LAST SMOKED IN DECEMBER ) Allergies-Medications (Allergen,Severity, Reaction): Coded Allergies: No Known Allergies (Verified Allergy, Unknown, 07/27/17) Reported Meds & Prescriptions Reported Meds & Active Scripts Active Eq Acetaminophen (Acetaminophen) 325 Mg Tab 650 Mg PO Q4H PRN Ibuprofen 800 Mg Tab 800 Mg PO Q8H PRN Vitamins Plus Lo 27-1 mg ( Vit W/ Ferrous Fumara) 1 Tab Tab 1 Tab PO AC LUNCH Feosol (Ferrous Sulfate) 200 Mg Tab 200 Mg PO DAILY Review of Systems Except as stated in HPI: all other systems reviewed are Neg Physical Exam Narrative GENERAL: Well-developed, well-nourished, comfortable, no apparent distress. SKIN: Right mid/medial thigh with 2 puncture wounds of moderate depth, no active bleeding with mild surrounding ecchymosis and tenderness, no crepitus. No other wounds. HEAD: Atraumatic. Normocephalic. EYES: Pupils equal and round. No scleral icterus. No injection or drainage. ENT: Mucous membranes pink and moist. CARDIOVASCULAR: Regular rate and rhythm. RESPIRATORY: No accessory muscle use. Clear to auscultation. Breath sounds equal bilaterally. MUSCULOSKELETAL: Skin exam as above. No obvious deformities. No clubbing. No cyanosis. No edema. NEUROLOGICAL: Awake and alert. No obvious cranial nerve deficits. Motor grossly within normal limits. Normal speech. PSYCHIATRIC: Appropriate mood and affect; insight and judgment normal. Data Data Last Documented VS Vital Signs Date Time Temp Pulse Resp B/P (MAP) Pulse Ox O2 Delivery O2 Flow Rate FiO2 09/24/17 17:43 98.0 80 12 143/88 (106) 98 Orders Orders Amoxicil-Clavulanate (Augmentin) (09/24/17 18:00) Ibuprofen (Motrin) (09/24/17 18:00) Rabies Vaccine Chick Emb Inj (Rabavert I (09/24/17 18:00) Rabies Immune Globulin Inj (Hyperrab S/D (09/24/17 18:00) MDM Medical Decision Making Medical Screen Exam Complete: Yes Emergency Medical Condition: Yes Differential Diagnosis Dog bite, rabies exposure Narrative Course Vital signs reviewed. Patient has 2 puncture wounds to her right medial thigh which occurred from a random dog bite about 15 minutes prior to arrival in the emergency department. The patient does not know the environmental remediation engineer of the dog and states that the dog was not wearing a collar. This attack was unprovoked. Puncture wounds were irrigated with normal saline and left open to heal by secondary intent. Patient will be started on Augmentin. Because the dog is unknown to the patient, and she does not believe she will not be able to locate the dog, and because the dog teams to be a stray dog with unknown vaccine history, I advised that the patient receive rabies postexposure treatment/prophylaxis. She is amenable to this. She will be administered rabies vaccine as well as rabies immunoglobulin and was advised to return to the emergency department on day 3, 7, and 14 for repeat vaccinations. She was advised on when to return to the emergency Department sooner. She verbalizes understanding and agreement with plan. Diagnosis Primary Impression: Dog bite Qualified Codes: W54.0XXA - Bitten by dog, initial encounter Additional Impression: Need for post exposure prophylaxis for rabies Referrals: Primary Care Physician 3 days Additional Instructions: Return to the emergency department on day 3, day 7, and a 14 after today's dog bite for further rabies vaccination. Take antibiotic as prescribed. Take ibuprofen/Tylenol for pain. Return to the emergency Department sooner for worsening symptoms or any other concerns as discussed. Scripts Amoxicillin-Clavulanate (Augmentin) 875-125 Mg Tab 1 TAB PO BID for Infection for 14 Days, #28 TAB 0 Refills Prov: Manny Valentino MD 09/24/17 Disposition: 01 DISCHARGE HOME Condition: Stable Manny Valentino MD Sep 24, 2017 18:13
== END 2017-09-24 20:16 | disposition home or self-care (01) ==
LOC: NEPD 17:42
DX: S71.151A Open bite, right thigh, initial encounter (principal); W54.0XXA Bitten by dog, initial encounter; Y93.01 Activity, walking, marching and hiking; Z20.3 Contact with and (suspected) exposure to rabies
CPT/HCPCS: 90375; 90471; 90472; 90675

== ENCOUNTER 2017-10-13 09:35 | Emergency (ER) | payer SELFPAY ==
[~2017-10-13] VITALS: Ht 170.2 cm; Wt 87.0 kg
[~2017-10-13 09:35] MED LIST changes: +AUGM875T3 PO
[2017-10-13 09:36] VITALS: BP 155/76; PULSE 78; RESP 16; TEMP 98.9; O2SAT 100
[2017-10-13] MEDS ORDERED: AMOXICILLIN/CLAVULANATE K 875 MG TAB PO ONE (10:00)
[2017-10-13] MEDS ORDERED: AUGM875T3 PO (10:00)
[2017-10-13] MEDS ORDERED: RABIES VACCINE CHICK EMB INJ 2.5 UNITS/ML SYR IM ONE (10:00)
--- NOTE | 2017-10-13 10:01 | PD ---
HPI Chief Complaint: Wound/Suture/Staple Re-Check Time Seen by Provider: 09:55 Travel History International Travel<30 days: No Contact w/Intl Traveler<30days: No Traveled to known affect area: No History of Present Illness HPI The patient is a 22-year-old after [place] female who presents emergency department for a dog bite to the medial aspect of the right thigh. The patient states the dog bite occurred 2 weeks ago, she received immunoglobulin and rabies vaccination at that time and was advised to follow-up on day 3, 7, day 14 for vaccination. The patient was also advised to take Augmentin as directed. However, the patient went to [facility] and states she did not take her antibiotics and did not receive her vaccination. She does note a small open wound on the medial aspect of the right thigh which has been draining and is slightly tender to palpation. She denies any fever, chills, or sweats. The patient states the dog bite was unprovoked, the dog did not have a collar, she does not know the division leader. Therefore, patient received rabies vaccination. She also received the immunoglobulin. PFSH Past Medical History Diminished Hearing: No Immunizations Current: Yes ?: Not Menopausal: No : 3 Para: 2 Ovarian Cysts: Yes (removed) Past Surgical History Gynecologic Surgery: Yes (DENDRITE ON OVARY REMOVED) Other Surgery: No Social History Alcohol Use: No Tobacco Use: No Substance Use: No Allergies-Medications (Allergen,Severity, Reaction): Coded Allergies: No Known Allergies (Verified Allergy, Unknown, 07/27/17) Reported Meds & Prescriptions Reported Meds & Active Scripts Active Augmentin (Amoxicillin-Clavulanate) 875-125 Mg Tab 1 Tab PO BID 14 Days Eq Acetaminophen (Acetaminophen) 325 Mg Tab 650 Mg PO Q4H PRN Ibuprofen 800 Mg Tab 800 Mg PO Q8H PRN Vitamins Plus Lo 27-1 mg ( Vit W/ Ferrous Fumara) 1 Tab Tab 1 Tab PO AC LUNCH Feosol (Ferrous Sulfate) 200 Mg Tab 200 Mg PO DAILY Review of Systems Except as stated in HPI: all other systems reviewed are Neg General / Constitutional: No: Fever Musculoskeletal: Positive: Pain (as noted in history present illness) Skin: Positive Other Neurologic: No: Paresthesia, Sensory Disturbance Physical Exam Narrative GENERAL: Awake, alert, nontoxic-appearing 22-year-old female who appears her stated age and is in no acute respiratory distress. SKIN: Focused skin assessment warm/dry. HEAD: Atraumatic. Normocephalic. EYES: Pupils equal and round. No scleral icterus. No injection or drainage. MUSCULOSKELETAL: Patient has a puncture wound less than 1 cm in diameter. Aspect of the right thigh which is draining a clear brown fluid. Mild induration but no significant erythema or underlying fluctuance. NEUROLOGICAL: Awake and alert. No obvious cranial nerve deficits. Motor grossly within normal limits. Normal speech. Nonfocal. Oriented 4. PSYCHIATRIC: Appropriate mood and affect; insight and judgment normal. Data Data Last Documented VS Vital Signs Date Time Temp Pulse Resp B/P (MAP) Pulse Ox O2 Delivery O2 Flow Rate FiO2 10/13/17 09:36 98.9 78 16 155/76 (102) 100 Room Air Orders Orders Amoxicil-Clavulanate (Augmentin) (10/13/17 10:00) Rabies Vaccine Chick Emb Inj (Rabavert I (10/13/17 10:00) MDM Medical Decision Making Medical Screen Exam Complete: Yes Emergency Medical Condition: Yes Medical Record Reviewed: Yes Differential Diagnosis Differential diagnosis includes infected wound, infected dog bite, abscess, cellulitis, rabies vaccination. Narrative Course The patient's wound is open and draining, she is advised to apply warm compresses. She was administered on Augmentin 875 mg orally. I reviewed the EMR, she received rabies immunoglobulin and vaccination in the emergency Department. Patient will be provided a rabies vaccination today on day 14. She will also be placed on Augmentin 875 mg twice a day. She is advised to follow-up with a primary physician for reevaluation of her wound. Diagnosis Primary Impression: Infected dog bite of thigh Qualified Codes: S71.151D - Open bite, right thigh, subsequent encounter; L08.9 - Local infection of the skin and subcutaneous tissue, unspecified; W54.0XXD - Bitten by dog, subsequent encounter Additional Impression: Need for rabies vaccination Patient Instructions: General Instructions Additional Instructions: Follow-up at the health department for continuing rabies vaccination. Medications as directed. Apply warm compresses to the affected area. Follow- up with a primary physician. Return if symptoms worsen or progress. Med/Other Pt SpecificInfo: Prescription(s) given Scripts Amoxicillin-Clavulanate (Augmentin) 875-125 Mg Tab 1 TAB PO BID for Infection for 10 Days, #20 TAB 0 Refills Prov: Reginald Lewis MD 10/13/17 Disposition: 01 DISCHARGE HOME Condition: Stable Reginald Lewis MD Oct 13, 2017 10:01
== END 2017-10-13 10:50 | disposition home or self-care (01) ==
LOC: NEPD 09:35
DX: S71.151D Open bite, right thigh, subsequent encounter (principal); W54.0XXD Bitten by dog, subsequent encounter; L08.9 Local infection of the skin and subcutaneous tissue, unspecified; Z23 Encounter for immunization
CPT/HCPCS: 90471; 90675

== ENCOUNTER 2018-02-05 00:11 | Emergency (ER) | payer SELFPAY ==
[~2018-02-05] VITALS: Ht 170.2 cm; Wt 87.0 kg
[2018-02-05 00:24] VITALS: BP 135/76; PULSE 71; RESP 20; TEMP 97.8; O2SAT 100
[2018-02-05] MEDS ORDERED: SODIUM CHLOR 0.9% 1000 ML INJ 1,000 ML IV ONE (00:51)
--- NOTE | 2018-02-05 00:54 | PD ---
HPI Chief Complaint: GI Complaint Time Seen by Provider: 00:51 Travel History International Travel<30 days: No Contact w/Intl Traveler<30days: No Traveled to known affect area: No History of Present Illness HPI 22-year-old female presents to the emergency department by private transportation for complaint of vomiting for 15 minutes prior to arrival to the emergency department with abdominal pain and headache. Patient thinks she has had subjective fever but has not checked her temperature at home. Patient took no medications prior to arrival to the emergency room. Patient takes Depakote shots and does not know her last menstrual period. Patient rates her discomfort as moderate to severe. Patient states he feels flushed and lightheaded. Patient denies any chronic medical conditions and takes no prescription medications. Patient denies dysuria frequency urgency flank pain and diarrhea. Patient's had no recent febrile illness or respiratory illness. Patient does not note any exacerbating or alleviating factors. PFSH Past Medical History Narrative Medical Ab1 ovarian cyst; nursing notes reviewed Diminished Hearing: No Immunizations Current: Yes Tetanus Vaccination: < 5 Years Influenza Vaccination: Yes ?: Not Menopausal: No : 3 Para: 2 Ovarian Cysts: Yes (removed) Past Surgical History Gynecologic Surgery: Yes (DENDRITE ON OVARY REMOVED) Other Surgery: No Social History Alcohol Use: No Tobacco Use: No Substance Use: No Allergies-Medications (Allergen,Severity, Reaction): Coded Allergies: No Known Allergies (Verified Allergy, Unknown, 02/05/18) Reported Meds & Prescriptions Reported Meds & Active Scripts Active No Active Prescriptions or Reported Medications Review of Systems Except as stated in HPI: all other systems reviewed are Neg Physical Exam Narrative GENERAL: Well-developed well-nourished female no acute distress no respiratory distress SKIN: Warm and dry. HEAD: Normocephalic. EYES: No scleral icterus. No injection or drainage. ENT mucous membranes moist airways patent no edema no erythema NECK: Supple, trachea midline. No JVD or lymphadenopathy. No meningismus no nuchal rigidity CARDIOVASCULAR: Regular rate and rhythm without murmurs, gallops, or rubs. RESPIRATORY: Breath sounds equal bilaterally. No accessory muscle use. GASTROINTESTINAL: Abdomen soft, non-tender, nondistended. MUSCULOSKELETAL: No cyanosis, or edema. BACK: Nontender without obvious deformity. No CVA tenderness. Data Data Last Documented VS Vital Signs Date Time Temp Pulse Resp B/P (MAP) Pulse Ox O2 Delivery O2 Flow Rate FiO2 02/05/18 00:24 97.8 71 20 135/76 (95) 100 Room Air Orders Orders Complete Blood Count With Diff (02/05/18 00:51) Basic Metabolic Panel (Bmp) (02/05/18 00:51) Urinalysis - C+S If Indicated (02/05/18 00:51) Iv Access Insert/Monitor (02/05/18 00:51) Ecg Monitoring (02/05/18 00:51) Oximetry (02/05/18 00:51) Sodium Chlor 0.9% 1000 Ml Inj (Ns 1000 M (02/05/18 00:51) Sodium Chloride 0.9% Flush (Ns Flush) (02/05/18 01:00) Ed Urine Pregnancytest Poc (02/05/18 00:51) Metoclopramide Inj (Reglan Inj) (02/05/18 01:00) Ketorolac Inj (Toradol Inj) (02/05/18 03:15) Labs Laboratory Tests Test 02/05/18 01:09 02/05/18 02:35 White Blood Count 8.2 TH/MM3 Red Blood Count 4.80 MIL/MM3 Hemoglobin 10.2 GM/DL Hematocrit 32.5 % Mean Corpuscular Volume 67.6 FL Mean Corpuscular Hemoglobin 21.3 PG Mean Corpuscular Hemoglobin Concent 31.5 % Red Cell Distribution Width 20.3 % Platelet Count 373 TH/MM3 Mean Platelet Volume 7.8 FL Neutrophils (%) (Auto) 47.2 % Lymphocytes (%) (Auto) 44.1 % Monocytes (%) (Auto) 5.9 % Eosinophils (%) (Auto) 1.9 % Basophils (%) (Auto) 0.9 % Neutrophils # (Auto) 3.8 TH/MM3 Lymphocytes # (Auto) 3.6 TH/MM3 Monocytes # (Auto) 0.5 TH/MM3 Eosinophils # (Auto) 0.2 TH/MM3 Basophils # (Auto) 0.1 TH/MM3 CBC Comment DIFF FINAL Differential Comment Blood Urea Nitrogen 9 MG/DL Creatinine 0.85 MG/DL Random Glucose 106 MG/DL Calcium Level 8.9 MG/DL Sodium Level 142 MEQ/L Potassium Level 3.4 MEQ/L Chloride Level 108 MEQ/L Carbon Dioxide Level 23.8 MEQ/L Anion Gap 10 MEQ/L Estimat Glomerular Filtration Rate 102 ML/MIN Urine Color YELLOW Urine Turbidity CLEAR Urine pH 6.0 Urine Specific [place] 1.016 Urine Protein NEG mg/dL Urine Glucose (UA) NEG mg/dL Urine Ketones 40 mg/dL Urine Occult Blood NEG Urine Nitrite NEG Urine Bilirubin NEG Urine Urobilinogen LESS THAN 2.0 MG/DL Urine Leukocyte Esterase TRACE Urine RBC LESS THAN 1 /hpf Urine WBC 7 /hpf Urine Mucus FEW /lpf Microscopic Urinalysis Comment CULT NOT INDICATED MDM Medical Decision Making Medical Screen Exam Complete: Yes Emergency Medical Condition: Yes Medical Record Reviewed: Yes Interpretation(s) CBC & BMP Diagram 02/05/18 01:09 Calcium Level 8.9 Vital Signs Date Time Temp Pulse Resp B/P (MAP) Pulse Ox O2 Delivery O2 Flow Rate FiO2 02/05/18 00:24 97.8 71 20 135/76 (95) 100 Room Air UA: cx not indicated poc hcg: negative Differential Diagnosis Vomiting, viral syndrome, gastroenteritis, , UTI Narrative Course IV access obtain systems collections of resulting patient given bolus of normal saline 1 L and Reglan 10 Patient resting comfortably and stable for outpatient management lab values are found to be grossly normal range [id number] hCG is negative no further nausea or vomiting after Reglan administration; patient will be discharged home with prescription for Zofran to take as needed for nausea and/or vomiting and to follow-up with her managing physician. Diagnosis Primary Impression: Vomiting Referrals: Primary Care Physician call for appointment Patient Instructions: General Instructions Additional Instructions: Recommend clear liquid diet for next 12-24 hours advance as tolerated to bland/ brat diet and regular diet Increase fluid hydration Take Zofran as prescribed as needed for nausea and/or vomiting Take acetaminophen/Tylenol as needed for minor pain or for fever 100.4F or greater Follow-up with your primary care provider Return to the emergency department as needed Med/Other Pt SpecificInfo: Prescription(s) given Scripts Ondansetron Odt (Zofran Odt) 4 Mg Tab 4 MG SL Q6HR Y for Nausea/Vomiting, #10 TAB 0 Refills Prov: Lakshmi Veloz MD 02/05/18 Disposition: DISCHARGE HOME Condition: Stable Lakshmi Veloz MD Feb 05, 2018 00:54
[2018-02-05] MEDS ORDERED: SODIUM CHLORIDE 0.9% FLUSH 10 ML FLUSH IVF PRN (01:00)
[2018-02-05] MEDS ORDERED: METOCLOPRAMIDE HCL 10 MG/2 ML VIAL IV PUSH ONE (01:00)
[2018-02-05 01:26] LABS: AUTOMATED NEUTROPHIL # 3.8 TH/MM3 (1.8-7.7); BASOPHIL # 0.1 TH/MM3 (0-0.2); BASOPHIL % 0.9 % (0.0-2.0); EOSINOPHIL # 0.2 TH/MM3 (0-0.4); EOSINOPHIL % 1.9 % (0.0-4.0); HEMATOCRIT 32.5 % (35.0-46.0); HEMOGLOBIN 10.2 GM/DL (11.6-15.3); LYMPH % 44.1 % (9.0-44.0); LYMPHOCYTE # 3.6 TH/MM3 (1.0-4.8); MEAN CELL VOLUME 67.6 FL (80.0-100.0); MEAN CORPUSCULAR HEMOGLOBIN 21.3 PG (27.0-34.0); MEAN CORPUSCULAR HGB CONC 31.5 % (32.0-36.0); MEAN PLATELET VOLUME 7.8 FL (7.0-11.0); MONO % 5.9 % (0.0-8.0); MONOCYTE # 0.5 TH/MM3 (0-0.9); NEUT % 47.2 % (16.0-70.0); PLATELET COUNT 373 TH/MM3 (150-450); RED CELL DISTRIBUTION WIDTH 20.3 % (11.6-17.2); WHITE BLOOD COUNT 8.2 TH/MM3 (4.0-11.0)
[2018-02-05 01:39] LABS: BICARBONATE 23.8 MEQ/L (21.0-32.0); CALCIUM 8.9 MG/DL (8.5-10.1); CREATININE 0.85 MG/DL (0.50-1.00)
[2018-02-05 02:48] LABS: BILIRUBIN, URINE NEG (NEG); BLOOD, URINE NEG (NEG); GLUCOSE,URINE NEG (NEG); KETONE, URINE 40 mg/dL (NEG); MUCUS URINE FEW /lpf (OCC); NITRITE,URINE NEG (NEG); URINE COLOR YELLOW (YELLW/STRAW); URINE LEUKOCYTE ESTERASE TRACE (NEG)
[2018-02-05] MEDS ORDERED: ZOFR4TAB3 SL (03:14)
[2018-02-05] MEDS ORDERED: KETOROLAC TROMETHAMINE 30 MG/ML (IVP) VIAL IV PUSH ONE (03:15)
== END 2018-02-05 04:27 | disposition home or self-care (01) ==
LOC: NEPC 00:11
DX: R11.10 Vomiting, unspecified (principal); R51 Headache; R10.9 Unspecified abdominal pain
CPT/HCPCS: 80048; 81001; 84703; 85025; 96374; 96375; 99284; J1885; J2765; J7030